=== PATIENT | female | born 1970 | race Two or more races ===

== ENCOUNTER 2018-02-11 22:06 | Emergency (ER) | payer MEDICAID ==
[~2018-02-11] VITALS: Ht 149.9 cm; Wt 67.7 kg
[~2018-02-11 22:06] MED LIST: ALB0.5UD NEB; ASPI-1265 PO; CLON-529 PO; DIAZ5TAB PO; DOCU-148 PO; ESCI5TAB PO; HYDR-3965 PO; METO50TA16 PO; NAPR-1154 PO; NITR0.4T48 SL; OLAN15TA3 PO; OLAN2.5T3 PO; PANT-47 PO; SYN0.088T PO; TOP100T PO
[2018-02-11] MEDS ORDERED: metoclopramide 5 mg/ml inj IM ONE (23:50)
[2018-02-12 00:20] LABS: BASOPHILS # (AUTO) 0.1 X10'3 (0-0.2); BASOPHILS % (AUTO) 0.5 % (0-1); EOSINOPHILS # (AUTO) 0.5 X10'3 (0-0.9); EOSINOPHILS % (AUTO) 4.6 % (0-6); HEMATOCRIT 35.1 % (35.0-45.0); HEMOGLOBIN 11.8 g/dl (12.0-16.0); LYMPHOCYTES # (AUTO) 2.4 X10'3 (1.1-4.8); LYMPHOCYTES % (AUTO) 20.4 % (21-51); MEAN CORPUSCULAR HEMOGLOBIN 27.9 PG (27.0-31.0); MEAN CORPUSCULAR HGB CONC 33.7 % (33.0-36.5); MEAN CORPUSCULAR VOLUME 82.7 FL (78-98); MEAN PLATELET VOLUME 7.2 FL (7.4-10.4); MONOCYTES # (AUTO) 0.7 X10'3 (0-0.9); MONOCYTES % (AUTO) 5.7 % (2-12); NEUTROPHILS % (AUTO) 68.8 % (42-75); PLATELET COUNT 491 X10'3 (140-440); RED BLOOD COUNT 4.24 X10'6 (4.20-5.60); RED CELL DISTRIBUTION WIDTH 15.3 % (11.5-14.5); WHITE BLOOD COUNT 11.7 X10'3 (4.5-11.0)
[2018-02-12 00:31] LABS: ALANINE AMINOTRANSFERASE 120 U/L (12-78); ALBUMIN 3.1 G/DL (3.4-5.0); ALBUMIN/GLOBULIN RATIO 0.6 (1.1-1.5); ALKALINE PHOSPHATASE 195 IU/L (46-116); ANION GAP 12 (8-16); ASPARTATE AMINO TRANSFERASE 86 U/L (10-37); BILIRUBIN,TOTAL 0.2 MG/DL (0.1-1.0); BLOOD UREA NITROGEN 11 MG/DL (7-18); BUN/CREATININE RATIO 12.9 (6.6-38.0); CALCIUM 9.1 MG/DL (8.5-10.1); CHLORIDE 104 MMOL/L (99-107); CREATININE 0.85 MG/DL (0.40-0.90); GLUCOSE 142 MG/DL (70-104); POTASSIUM 3.9 MMOL/L (3.5-5.1); SODIUM 140 MMOL/L (135-145); TOTAL CARBON DIOXIDE 24.3 MMOL/L (24-32); TOTAL PROTEIN 8.3 G/DL (6.4-8.2); eGFR 71 ML/MIN
[2018-02-12 01:06] LABS: CLARITY,URINE CLEAR (Clear); COLOR,URINE YELLOW (Yellow); GLUCOSE, URINE NEGATIVE (Neg); KETONES,URINE NEGATIVE (Neg); LEUKOCYTE ESTERASE ,URINE NEGATIVE (Neg); NITRITES, URINE NEGATIVE (Neg); OCCULT BLOOD,URINE NEGATIVE (Neg); PROTEIN,URINE NEGATIVE (Neg); UROBILINOGEN,URINE 0.2 E.U/dL (0.2-1.0)
[2018-02-12 01:17] LABS: UA COLLECTION TYPE STRAIGHT CATH
[2018-02-12 01:26] VITALS: BP 104/62
[2018-02-12] MEDS ORDERED: proMETHazine 25mg tablet PO ONE (01:40)
== END 2018-02-12 02:10 | disposition home or self-care (01) ==
LOC: ER 22:06
DX: G43.909 Migraine, unspecified, not intractable, without status migrainosus (principal); R56.9 Unspecified convulsions; R74.0 Nonspecific elevation of levels of transaminase and lactic acid dehydrogenase [LDH]; Z88.0 Allergy status to penicillin; Z88.6 Allergy status to analgesic agent; Z88.8 Allergy status to other drugs, medicaments and biological substances; Z79.82 Long term (current) use of aspirin; Z79.899 Other long term (current) drug therapy; I10 Essential (primary) hypertension; K21.9 Gastro-esophageal reflux disease without esophagitis; G89.29 Other chronic pain
CPT/HCPCS: 36415; 71045; 80053; 81003; 85025; 96372; 99285; A6449; J2765; Q0169

== ENCOUNTER 2018-04-22 20:35 | Emergency (ER) | payer MEDICAID ==
[~2018-04-22] VITALS: Ht 149.9 cm; Wt 67.7 kg
[2018-04-22] MEDS ORDERED: LORazepam 1 MG tablet PO ONE ×2 (21:30→23:25)
[2018-04-22 21:53] LABS: BASOPHILS % (AUTO) 0.4 % (0-1); EOSINOPHILS # (AUTO) 1.5 X10'3 (0-0.9); EOSINOPHILS % (AUTO) 12.6 % (0-6); HEMATOCRIT 37.6 % (35.0-45.0); HEMOGLOBIN 12.3 g/dl (12.0-16.0); LYMPHOCYTES % (AUTO) 26.2 % (21-51); MEAN CORPUSCULAR HEMOGLOBIN 27.1 PG (27.0-31.0); MEAN CORPUSCULAR HGB CONC 32.7 % (33.0-36.5); MEAN CORPUSCULAR VOLUME 82.7 FL (78-98); MONOCYTES # (AUTO) 0.7 X10'3 (0-0.9); MONOCYTES % (AUTO) 5.9 % (2-12); NEUTROPHILS # (AUTO) 6.4 X10'3 (1.8-7.7); NEUTROPHILS % (AUTO) 54.9 % (42-75); PLATELET COUNT 507 X10'3 (140-440); RED BLOOD COUNT 4.55 X10'6 (4.20-5.60); WHITE BLOOD COUNT 11.6 X10'3 (4.5-11.0)
[2018-04-22 22:05] LABS: ALANINE AMINOTRANSFERASE 41 U/L (12-78); ALBUMIN 3.1 G/DL (3.4-5.0); ALBUMIN/GLOBULIN RATIO 0.6 (1.1-1.5); ALKALINE PHOSPHATASE 169 IU/L (46-116); ANION GAP 11 (8-16); ASPARTATE AMINO TRANSFERASE 35 U/L (10-37); BILIRUBIN,TOTAL 0.2 MG/DL (0.1-1.0); BLOOD UREA NITROGEN 8 MG/DL (7-18); BUN/CREATININE RATIO 8.2 (6.6-38.0); CALCIUM 9.1 MG/DL (8.5-10.1); CHLORIDE 106 MMOL/L (99-107); CREATININE 0.97 MG/DL (0.40-0.90); GLUCOSE 95 MG/DL (70-104); POTASSIUM 3.8 MMOL/L (3.5-5.1); SODIUM 139 MMOL/L (135-145); TOTAL CARBON DIOXIDE 21.7 MMOL/L (24-32); TOTAL PROTEIN 8.5 G/DL (6.4-8.2); eGFR 61 ML/MIN
[2018-04-22] MEDS ORDERED: ondansetron 4mg rapidly disintigrating tab PO ONE (23:15)
[2018-04-22] MEDS ORDERED: HYDROcodone/acetaminophen 5mg/325mg tablet PO ONE (23:15)
[2018-04-23 00:01] VITALS: BP 145/84
== END 2018-04-23 00:04 | disposition home or self-care (01) ==
LOC: ER 20:36
DX: G40.909 Epilepsy, unspecified, not intractable, without status epilepticus (principal); I10 Essential (primary) hypertension; J45.909 Unspecified asthma, uncomplicated; K21.9 Gastro-esophageal reflux disease without esophagitis; G89.29 Other chronic pain; Z86.14 Personal history of Methicillin resistant Staphylococcus aureus infection; Z88.6 Allergy status to analgesic agent; Z88.2 Allergy status to sulfonamides; Z88.5 Allergy status to narcotic agent; Z88.0 Allergy status to penicillin; Z88.8 Allergy status to other drugs, medicaments and biological substances; Z79.82 Long term (current) use of aspirin; Z79.899 Other long term (current) drug therapy; Z98.890 Other specified postprocedural states
CPT/HCPCS: 36415; 71045; 80053; 85025; 99285

== ENCOUNTER 2018-05-23 22:18 | Emergency (ER) | payer MEDICAID ==
[~2018-05-23] VITALS: Ht 149.9 cm; Wt 149.0 kg
[2018-05-23] MEDS ORDERED: LORazepam 2 mg/ml vial IV ONE (22:30)
[2018-05-23 22:55] LABS: BASOPHILS % (AUTO) 0.3 % (0-1); EOSINOPHILS % (AUTO) 0 % (0-6); HEMATOCRIT 39.2 % (35.0-45.0); LYMPHOCYTES # (AUTO) 2.2 X10'3 (1.1-4.8); MEAN CORPUSCULAR HEMOGLOBIN 27.4 PG (27.0-31.0); MEAN CORPUSCULAR HGB CONC 33.1 % (33.0-36.5); MEAN CORPUSCULAR VOLUME 82.8 FL (78-98); MEAN PLATELET VOLUME 7.2 FL (7.4-10.4); MONOCYTES # (AUTO) 0.1 X10'3 (0-0.9); MONOCYTES % (AUTO) 0.7 % (2-12); NEUTROPHILS # (AUTO) 14.5 X10'3 (1.8-7.7); PLATELET COUNT 613 X10'3 (140-440); RED BLOOD COUNT 4.74 X10'6 (4.20-5.60); RED CELL DISTRIBUTION WIDTH 15.5 % (11.5-14.5); WHITE BLOOD COUNT 16.8 X10'3 (4.5-11.0)
[2018-05-23] MEDS ORDERED: normal saline 1000ML IV soln IVB ONE (22:55)
[2018-05-23] MEDS ORDERED: ondansetron/PF 4mg/2ml inj IV ONE (23:15)
[2018-05-23] MEDS ORDERED: morphine 4 MG/ML inj SYRINge IV ONE (23:15)
[2018-05-23 23:28] LABS: ALANINE AMINOTRANSFERASE 32 U/L (12-78); ALBUMIN 3.2 G/DL (3.4-5.0); ALBUMIN/GLOBULIN RATIO 0.6 (1.1-1.5); ALKALINE PHOSPHATASE 164 IU/L (46-116); ANION GAP 13 (8-16); ASPARTATE AMINO TRANSFERASE 22 U/L (10-37); BILIRUBIN,TOTAL 0.2 MG/DL (0.1-1.0); BLOOD UREA NITROGEN 4 MG/DL (7-18); BUN/CREATININE RATIO 4.1 (6.6-38.0); CALCIUM 9.6 MG/DL (8.5-10.1); CHLORIDE 104 MMOL/L (99-107); CREATININE 0.98 MG/DL (0.40-0.90); GLUCOSE 159 MG/DL (70-104); MAGNESIUM 1.9 MG/DL (1.5-2.4); SODIUM 140 MMOL/L (135-145); TOTAL PROTEIN 8.4 G/DL (6.4-8.2); eGFR 60 ML/MIN
[2018-05-23] MEDS: potassium Cl 20 mEq SR tablet PO ONE (23:55)
[2018-05-24] MEDS: potassium Cl 20 mEq SR tablet PO ONE (00:23)
[2018-05-24] MEDS ORDERED: tizanidine 4mg tablet PO STA (00:27)
[2018-05-24] MEDS ORDERED: potassium Cl 10 mEq/100mL bag IV ONE (00:30)
[2018-05-24] MEDS ORDERED: potass W/LIDOcaine 10mEq/100ml 100 ML IV ONE (00:55)
[2018-05-24] MEDS ORDERED: POTASSIUM CL IV ONE (01:00)
[2018-05-24] MEDS ORDERED: LIDOCAINE 1% IV ONE (01:00)
[2018-05-24] MEDS ORDERED: HYDROcodone/acetaminophen 10/325mg tab PO STA (01:31)
[2018-05-24] MEDS ORDERED: TIZA2CAP PO (01:47)
[2018-05-24 02:05] LABS: CLARITY,URINE CLEAR (Clear); COLOR,URINE YELLOW (Yellow); GLUCOSE, URINE NEGATIVE (Neg); KETONES,URINE NEGATIVE (Neg); LEUKOCYTE ESTERASE ,URINE NEGATIVE (Neg); NITRITES, URINE NEGATIVE (Neg); OCCULT BLOOD,URINE MODERATE (Neg); PROTEIN,URINE NEGATIVE (Neg); UROBILINOGEN,URINE 0.2 E.U/dL (0.2-1.0)
[2018-05-24 02:14] LABS: UA COLLECTION TYPE STRAIGHT CATH
[2018-05-24 02:18] LABS: BACTERIA,URINE NONE SEEN /HPF (Neg); MUCUS STRANDS NONE SEEN /LPF (Neg); RBC,URINE 0-2 /HPF (0-2); SQUAMOUS EPITHELIAL CELL,UR FEW /LPF (FEW); WBC,URINE 0-4 /HPF (0-4)
[2018-05-24 02:59] VITALS: BP 108/54
== END 2018-05-24 03:01 | disposition home or self-care (01) ==
LOC: ER 22:18
DX: M62.838 Other muscle spasm (principal); E87.6 Hypokalemia; M54.2 Cervicalgia; M25.519 Pain in unspecified shoulder; G80.9 Cerebral palsy, unspecified; I10 Essential (primary) hypertension; J45.909 Unspecified asthma, uncomplicated; K21.9 Gastro-esophageal reflux disease without esophagitis; G89.29 Other chronic pain; Z21 Asymptomatic human immunodeficiency virus [HIV] infection status; Z99.3 Dependence on wheelchair; Z98.890 Other specified postprocedural states; Z93.1 Gastrostomy status; Z88.0 Allergy status to penicillin; Z88.5 Allergy status to narcotic agent; Z79.899 Other long term (current) drug therapy
CPT/HCPCS: 36415; 80053; 81001; 83735; 85025; 96365; 96375; 99284; J2060; J2270; J2405; J3480; J3490

== ENCOUNTER 2018-10-14 20:45 | Inpatient (IN) | payer MEDICAID ==
[~2018-10-14] VITALS: Ht 149.9 cm; Wt 75.5 kg
[~2018-10-14 20:45] MED LIST changes: +TIZA2CAP PO
[2018-10-14] MEDS ORDERED: normal saline 1000ML IV soln IVB ONE (21:40)
[2018-10-14] MEDS ORDERED: LORazepam 2 mg/ml vial IV ONE ×2 (21:40→22:20)
[2018-10-14 22:08] LABS: BASOPHILS # (AUTO) 0.1 X10'3 (0-0.2); BASOPHILS % (AUTO) 0.3 % (0-1); EOSINOPHILS # (AUTO) 0.5 X10'3 (0-0.9); EOSINOPHILS % (AUTO) 2.9 % (0-6); HEMATOCRIT 37.5 % (35.0-45.0); HEMOGLOBIN 11.9 g/dl (12.0-16.0); LYMPHOCYTES # (AUTO) 2.6 X10'3 (1.1-4.8); LYMPHOCYTES % (AUTO) 15.9 % (21-51); MEAN CORPUSCULAR HEMOGLOBIN 26.6 PG (27.0-31.0); MEAN CORPUSCULAR HGB CONC 31.9 % (33.0-36.5); MEAN CORPUSCULAR VOLUME 83.3 FL (78-98); MEAN PLATELET VOLUME 7.5 FL (7.4-10.4); MONOCYTES # (AUTO) 0.8 X10'3 (0-0.9); MONOCYTES % (AUTO) 4.8 % (2-12); NEUTROPHILS # (AUTO) 12.6 X10'3 (1.8-7.7); NEUTROPHILS % (AUTO) 76.1 % (42-75); PLATELET COUNT 626 X10'3 (140-440); RED BLOOD COUNT 4.49 X10'6 (4.20-5.60); RED CELL DISTRIBUTION WIDTH 15.6 % (11.5-14.5); WHITE BLOOD COUNT 16.5 X10'3 (4.5-11.0)
[2018-10-14 22:24] LABS: ALANINE AMINOTRANSFERASE 31 U/L (12-78); ALBUMIN 3.3 G/DL (3.4-5.0); ALBUMIN/GLOBULIN RATIO 0.6 (1.1-1.5); ALKALINE PHOSPHATASE 200 IU/L (46-116); ANION GAP 16 (8-16); ASPARTATE AMINO TRANSFERASE 21 U/L (10-37); BILIRUBIN,TOTAL 0.2 MG/DL (0.1-1.0); BLOOD UREA NITROGEN 9 MG/DL (7-18); BUN/CREATININE RATIO 9.7 (6.6-38.0); CALCIUM 9.3 MG/DL (8.5-10.1); CHLORIDE 107 MMOL/L (99-107); CREATININE 0.93 MG/DL (0.40-0.90); GLUCOSE 106 MG/DL (70-104); POTASSIUM 3.6 MMOL/L (3.5-5.1); SODIUM 145 MMOL/L (135-145); TOTAL CARBON DIOXIDE 21.7 MMOL/L (24-32); TOTAL PROTEIN 8.9 G/DL (6.4-8.2); eGFR 64 ML/MIN
[2018-10-14 22:29] LABS: INR 1.1 INR; PARTIAL THROMBOPLASTIN TIME 30 SECONDS (22-32); PROTHROMBIN TIME 10.9 SECONDS (9.0-12.0)
[2018-10-14 22:31] LABS: ETHANOL < 0.010 GM/DL (0.0-0.010)
[2018-10-14] MEDS ORDERED: HYDROcodone/acetaminophen 10/325mg tab PO ONE (22:50)
[2018-10-14 23:03] LABS: URINE AMPHETAMINE SCREEN NEGATIVE (Neg); URINE BARBITUATE SCREEN NEGATIVE (Neg); URINE BENZODIAZEPINES SCREEN NEGATIVE (Neg); URINE CANNABINOID SCREEN NEGATIVE (Neg); URINE COCAINE SCREEN NEGATIVE (Neg); URINE METHADONE SCREEN NEGATIVE (Neg); URINE OPIATE SCREEN POSITIVE (Neg); URINE PHENCYCLIDINE SCREEN NEGATIVE (Neg)
--- NOTE | 2018-10-14 23:26 | NUR ---
patient in bed supine eyes closed covers on rr even un labored no observable s/s of acute stress at this time, non -admin norc-due to patients current observable condition
[2018-10-14 23:53] LABS: CLARITY,URINE CLEAR (Clear); COLOR,URINE YELLOW (Yellow); GLUCOSE, URINE NEGATIVE (Neg); KETONES,URINE NEGATIVE (Neg); LEUKOCYTE ESTERASE ,URINE NEGATIVE (Neg); NITRITES, URINE NEGATIVE (Neg); OCCULT BLOOD,URINE NEGATIVE (Neg); PH,URINE 6.5 (4.8-8.0); PROTEIN,URINE NEGATIVE (Neg)
[2018-10-14 23:58] LABS: UA COLLECTION TYPE FOLEY CATH
[2018-10-15] MEDS ORDERED: CefTRIAXone 2gm/D5W 50ml 50 ML IV ONE (00:45)
[2018-10-15] MEDS ORDERED: acetaminophen 650mg rectal suppository RC PRN (02:20)
[2018-10-15] MEDS ORDERED: mag hydrox/Alum hydrox/simeth 30ml oral suspension PO PRN (02:20)
[2018-10-15] MEDS ORDERED: acetaminophen 325mg tablet PO PRN ×2 (02:20)
[2018-10-15] MEDS ORDERED: magnesium hydroxide 30ml (MOM) UD suspension PO PRN (02:20)
[2018-10-15] MEDS ORDERED: morphine 4 MG/ML inj SYRINge IV PRN (02:20)
[2018-10-15] MEDS ORDERED: ondansetron/PF 4mg/2ml inj IV PRN (02:20)
[2018-10-15] MEDS ORDERED: HYDROmorphone 1 mg/ml syringe IV PRN (02:20)
[2018-10-15] MEDS ORDERED: metoclopramide 5 mg/ml inj IV PRN (02:20)
--- NOTE | 2018-10-15 02:58 | NUR ---
Patient in room ED 16. I have received report from Easton MANNING and had the opportunity to ask questions and assume patient care. Waiting pt arrival to PCU
[2018-10-15 03:15] VITALS: BP 121/86
--- NOTE | 2018-10-15 03:15 | NUR ---
Pt now in 3023B. Pt sedated r/t ativan in ED. Alert to voice. Cerebral palsy with contracted extremities. Per report, pt stated she has degenerative joints in her shoulders, leaving her with very limited ROM. IV access in R. elliott. Pt refused any in arms. She is a hard stick. Samm per protocol. VSS T 98.8 BP 121/86 hr 90 o2 sat 94 on RA RR 16
[2018-10-15 03:50] LABS: MAGNESIUM 1.3 MG/DL (1.5-2.4); PHOSPHORUS 2.6 MG/DL (2.3-4.5)
[2018-10-15] MEDS ORDERED: magnesium Cl slow-release 64mg tablet PO PRN (04:10)
[2018-10-15] MEDS ORDERED: magnesium 4gm in 100ml NS 100 ML IV PRN (04:10)
[2018-10-15] MEDS ORDERED: potassium Cl 40MEQ/NS 500ml 500 ML IV PRN ×2 (04:10)
[2018-10-15] MEDS ORDERED: potassium Cl 20 mEq SR tablet PO PRN ×2 (04:10)
[2018-10-15] MEDS ORDERED: albuterol 2.5 MG/3 ML nebule NEB PRN ×2 (05:30→22:10)
[2018-10-15 06:00] VITALS: BP 121/83
[2018-10-15] MEDS: normal saline 1000ml 1,000 ML IV SCH ×3 (07:08→22:17)
--- NOTE | 2018-10-15 07:15 | NUR ---
Problems reprioritized. Patient report given, questions answered & plan of care reviewed with Pat rn.
--- NOTE | 2018-10-15 07:41 | NUR ---
Patient in room PCU 3023. I have received report from Faustina RN and had the opportunity to ask questions and assume patient care.
[2018-10-15] MEDS ORDERED: methylPREDNISolone sod succ 125mg/2ml vial IV SCH (08:00)
[2018-10-15] MEDS: heparin, porcine 5000 units/ml vial SQ SCH ×2 (08:15→20:57)
[2018-10-15] MEDS: docusate sod 100mg capsule PO SCH ×2 (08:15→20:00)
[2018-10-15] MEDS: azithromycin 250mg tablet PO SCH (08:15)
[2018-10-15] MEDS: CefTRIAXone/D5W-Rocephin 1gm 50 ML IV SCH (08:16)
[2018-10-15] MEDS: HYDROcodone/acetaminophen 5mg/325mg tablet PO PRN ×4 (08:25→22:59)
[2018-10-15] MEDS ORDERED: magnesium 2GM in 50ml NS 50 ML IV ONE (09:45)
[2018-10-15 11:00] VITALS: BP 129/80
--- NOTE | 2018-10-15 14:00 | NUR ---
Caregiver at bedside. Caregiver has sent a text to patient's family to see if anyone can bring in patient's electric wheelchair.
[2018-10-15] MEDS: ipratropium/albuterol 3ml nebule NEB SCH ×2 (14:30→21:45)
[2018-10-15 15:00] VITALS: BP 122/80
--- NOTE | 2018-10-15 15:49 | NUR ---
Extended PIV and 3 PIVs attempted but unsuccessful. Keysha MANNING aware and to call Flushed PIV to right elliott with slight sting initially but no redness or swelling noted. Addendum: 10/15/18 at 1551 by Pearl Ferrara RN Amended: Links added.
--- NOTE | 2018-10-15 17:44 | NUR ---
Paged Dr. Hager PAGER ID: [phone] MESSAGE: Machelle Mendez... in 3023B with cerebral palsy states that her spasms are especially bad from 6 pm to 9 pm and that she usually takes Zaniflex for this. Also states that she often uses BiPaP with 25% oxygen to sleep at night. Roberto Gomes [phone]
--- NOTE | 2018-10-15 18:30 | NUR ---
Patient in room PCU 3023. I have received report from Roberto MANNING and had the opportunity to ask questions and assume patient care.
--- NOTE | 2018-10-15 19:26 | NUR ---
Problems reprioritized. Patient report given, questions answered & plan of care reviewed with Ghazala MANNING.
[2018-10-15] MEDS ORDERED: lactobacillus rhamnosus 10,000 MMU CELLS/CAPSULE PO SCH (20:00)
[2018-10-15] MEDS ORDERED: METO-467 PO (20:24)
[2018-10-15] MEDS ORDERED: TIZA4TAB11 PO ×3 (20:24)
[2018-10-15] MEDS ORDERED: ALBU6.7H INH (20:24)
[2018-10-15] MEDS ORDERED: LACT1CAP65 PO (20:26)
[2018-10-15] MEDS ORDERED: MULT-933 PO (20:26)
[2018-10-15] MEDS ORDERED: TEN1T PO (20:28)
[2018-10-15] MEDS ORDERED: temazepam 15mg capsule PO PRN (21:00)
[2018-10-15] MEDS ORDERED: tizanidine 4mg tablet PO PRN (21:00)
[2018-10-15] MEDS ORDERED: tizanidine 4mg tablet PO SCH (21:00)
[2018-10-15] MEDS ORDERED: docusate sod 100mg capsule PO PRN (22:10)
[2018-10-15] MEDS ORDERED: topiramate 100mg tablet PO ONE (23:40)
[2018-10-15] MEDS ORDERED: tizanidine 4mg tablet PO ONE (23:45)
[2018-10-15] MEDS ORDERED: olanzapine 10mg tablet PO ONE (23:45)
[2018-10-15] MEDS ORDERED: OLANZapine 2.5MG tablet PO ONE (23:45)
--- NOTE | 2018-10-16 06:21 | NUR ---
Patient in room PCU 3021. I have received report from Layla MANNING and had the opportunity to ask questions and assume patient care. Will continue to monitor patient.
[2018-10-16 06:38] LABS: BASOPHILS # (AUTO) 0.1 X10'3 (0-0.2); BASOPHILS % (AUTO) 0.6 % (0-1); EOSINOPHILS # (AUTO) 0.2 X10'3 (0-0.9); EOSINOPHILS % (AUTO) 1.5 % (0-6); HEMATOCRIT 32.4 % (35.0-45.0); HEMOGLOBIN 10.3 g/dl (12.0-16.0); LYMPHOCYTES # (AUTO) 4.3 X10'3 (1.1-4.8); LYMPHOCYTES % (AUTO) 39.8 % (21-51); MEAN CORPUSCULAR HEMOGLOBIN 26.3 PG (27.0-31.0); MEAN CORPUSCULAR HGB CONC 31.8 % (33.0-36.5); MEAN CORPUSCULAR VOLUME 82.9 FL (78-98); MEAN PLATELET VOLUME 7.4 FL (7.4-10.4); MONOCYTES # (AUTO) 0.5 X10'3 (0-0.9); MONOCYTES % (AUTO) 4.2 % (2-12); NEUTROPHILS # (AUTO) 5.9 X10'3 (1.8-7.7); NEUTROPHILS % (AUTO) 53.9 % (42-75); PLATELET COUNT 443 X10'3 (140-440); RED BLOOD COUNT 3.91 X10'6 (4.20-5.60); RED CELL DISTRIBUTION WIDTH 15.7 % (11.5-14.5); WHITE BLOOD COUNT 10.9 X10'3 (4.5-11.0)
--- NOTE | 2018-10-16 06:38 | NUR ---
Problems reprioritized. Patient report given, questions answered & plan of care reviewed with Shiraz MANNING.
[2018-10-16 07:00] VITALS: BP 146/83
[2018-10-16] MEDS: ipratropium/albuterol 3ml nebule NEB SCH ×3 (07:03→15:14)
[2018-10-16 07:12] LABS: ALBUMIN 2.6 G/DL (3.4-5.0); BLOOD UREA NITROGEN 8 MG/DL (7-18); BUN/CREATININE RATIO 9.6 (6.6-38.0); CALCIUM 8.2 MG/DL (8.5-10.1); CHLORIDE 112 MMOL/L (99-107); CREATININE 0.83 MG/DL (0.40-0.90); GLUCOSE 101 MG/DL (70-104); POTASSIUM 3.6 MMOL/L (3.5-5.1); TOTAL CARBON DIOXIDE 21.4 MMOL/L (24-32); eGFR 73 ML/MIN
[2018-10-16 07:24] LABS: ANION GAP 12 (8-16); SODIUM 145 MMOL/L (135-145)
[2018-10-16] MEDS: azithromycin 250mg tablet PO SCH (07:28)
[2018-10-16] MEDS: CefTRIAXone/D5W-Rocephin 1gm 50 ML IV SCH (07:28)
[2018-10-16] MEDS: docusate sod 100mg capsule PO SCH (07:28)
[2018-10-16] MEDS: levoTHYROXINE 25mcg tablet PO SCH ×2 (07:29→08:00)
[2018-10-16] MEDS: heparin, porcine 5000 units/ml vial SQ SCH (07:36)
[2018-10-16] MEDS ORDERED: guanFACINE 1 mg tablet PO SCH (08:00)
[2018-10-16] MEDS ORDERED: tizanidine 4mg tablet PO SCH ×5 (08:00→21:00)
[2018-10-16] MEDS ORDERED: ESCITALOPRAM OXALATE 20 MG PO SCH (08:00)
[2018-10-16] MEDS ORDERED: topiramate 100mg tablet PO SCH (08:00)
[2018-10-16] MEDS ORDERED: predniSONE 20 mg tablet PO SCH (08:00)
[2018-10-16] MEDS ORDERED: lactobacillus rhamnosus 10,000 MMU CELLS/CAPSULE PO SCH (08:00)
[2018-10-16] MEDS: normal saline 1000ml 1,000 ML IV SCH (08:17)
[2018-10-16 11:00] VITALS: BP 130/80
[2018-10-16] MEDS: HYDROcodone/acetaminophen 5mg/325mg tablet PO PRN ×2 (13:26→17:28)
--- NOTE | 2018-10-16 14:57 | NUR ---
Page to respiratory: [id number] pt requesting PRN breathing tx. Said she did not receive one this morning because she was asleep. Thank you.
[2018-10-16 15:00] VITALS: BP 113/68
--- NOTE | 2018-10-16 16:47 | NUR ---
Page sent to Dr. Hager: PAGER ID: [phone] MESSAGE: [id number] Dennis: Patient is wondering if she is going home today. Thanks, Mendy [phone]
[2018-10-16] MEDS ORDERED: BUDE10.22 INH (17:29)
[2018-10-16] MEDS ORDERED: PRED10TA23 PO (17:29)
[2018-10-16] MEDS ORDERED: AZIT-63 PO (17:29)
[2018-10-16] MEDS ORDERED: CEFD300C3 PO (17:29)
--- NOTE | 2018-10-16 18:24 | NUR ---
Problems reprioritized. Patient report given, questions answered & plan of care reviewed with Oliva Baptiste RN. Patient stable at transfer of care.
--- NOTE | 2018-10-16 18:30 | NUR ---
Patient in room PCU 3023. I have received report from KASIA MANNING and had the opportunity to ask questions and assume patient care. PATIENT GETTING READY FOR DISCHARGE HOME ANISH
[2018-10-16 19:00] VITALS: BP 118/68
--- NOTE | 2018-10-16 19:00 | NUR ---
PATIENT'S PIV DISCONTINUED WITH CANNULA INTACT PRESSURE DRESSING APPLIED NO BLEEDING NOTED. PROTOCOL BOLDEN DISCONTINUED WITH NO ILL EFFECTS.
--- NOTE | 2018-10-16 19:30 | NUR ---
DISCHARGE INSTRUCTIONS GIVEN TO PATIENT AND CAREGIVER, BOTH VERBALIZED UNDERSTANDING. DISCHARGE PAPER SIGNED BY CAREGIVER WITH THE CONSENT OF PATIENT.
--- NOTE | 2018-10-16 19:55 | NUR ---
PATIENT LEFT FOR DISCHARGE HOME WITH CAREGIVER IN A WHEELCHAIR WITH STAFF TO THE FRONT DOOR.
[2018-10-16] MEDS ORDERED: olanzapine 10mg tablet PO SCH (21:00)
[2018-10-16] MEDS ORDERED: OLANZapine 2.5MG tablet PO SCH (21:00)
[2018-10-17] MEDS ORDERED: tizanidine 4mg tablet PO SCH ×2 (08:00→13:00)
== END 2018-10-16 19:55 | disposition home health service (06) | DRG 720 ==
LOC: ER 20:47 → ED HOLD 10-15 02:17 → PCU 3S 10-15 03:20
PROVIDERS: ADMIT Family Medicine; ATTEND Hospitalist
PROC: 5A09357 Assistance with Respiratory Ventilation, Less than 24 Consecutive Hours, Continuous Positive Airway Pressure (ICD-10-PCS; principal; 2018-10-15)
DX: A41.9 Sepsis, unspecified organism (principal); E83.42 Hypomagnesemia; E86.1 Hypovolemia; G80.9 Cerebral palsy, unspecified; I10 Essential (primary) hypertension; J44.1 Chronic obstructive pulmonary disease with (acute) exacerbation; K21.9 Gastro-esophageal reflux disease without esophagitis; F32.9 Major depressive disorder, single episode, unspecified; F41.9 Anxiety disorder, unspecified; G89.29 Other chronic pain; Z99.3 Dependence on wheelchair; Z88.0 Allergy status to penicillin; Z88.8 Allergy status to other drugs, medicaments and biological substances; Z82.49 Family history of ischemic heart disease and other diseases of the circulatory system; Z79.899 Other long term (current) drug therapy
CPT/HCPCS: 36415; 71045; 80048; 80053; 80305; 80320; 81003; 83735; 83880; 84100; 84443; 84484; 85025; 85610; 85730; 87070; 93005; 94640; 94660; 94760; 96361; 96365; 96375; 97161; 97530; 99285; G0378; J0696; J1644; J2060; J2270; J2405; J2930; J3475; J3490; J7030; J7512

== ENCOUNTER 2019-02-14 09:09 | Emergency (ER) | payer MEDICAID ==
[~2019-02-14] VITALS: Ht 149.9 cm; Wt 72.7 kg
[~2019-02-14 09:09] MED LIST changes: -ALB0.5UD NEB; +ALBU6.7H INH; -ASPI-1265 PO; +BUDE10.22 INH; -CLON-529 PO; -DIAZ5TAB PO; +LACT1CAP65 PO; +METO-467 PO; -METO50TA16 PO; +MULT-933 PO; -NAPR-1154 PO; -OLAN2.5T3 PO; -PANT-47 PO; +TEN1T PO; -TIZA2CAP PO; +TIZA4TAB11 PO
[2019-02-14 09:18] VITALS: BP 132/89
--- NOTE | 2019-02-14 09:25 | NUR ---
BIB CAREGIVER, IN ELECTRIC WHEELCHAIR, WITH C/O PAIN AND SWELLING IN RIGHT ANKLE SINCE FRIDAY. DENIES ANY FALLS OR TRAUMA TO ANKLE. REDNESS NOTED TO TOP OF RIGHT FOOT. LATERAL ANKLE SWELLING 2+ NOTED.
[2019-02-14] MEDS ORDERED: CLOT15CR10 TP (10:32)
== END 2019-02-14 11:35 | disposition home or self-care (01) ==
LOC: ER 09:10
DX: M25.571 Pain in right ankle and joints of right foot (principal); M25.519 Pain in unspecified shoulder; B35.3 Tinea pedis; I10 Essential (primary) hypertension; K21.9 Gastro-esophageal reflux disease without esophagitis; G89.29 Other chronic pain; Z86.14 Personal history of Methicillin resistant Staphylococcus aureus infection; Z98.890 Other specified postprocedural states; Z88.1 Allergy status to other antibiotic agents; Z88.0 Allergy status to penicillin; Z88.8 Allergy status to other drugs, medicaments and biological substances; Z79.899 Other long term (current) drug therapy
CPT/HCPCS: 73610; 99284

== ENCOUNTER 2019-02-24 20:48 | Emergency (ER) | payer MEDICAID ==
[~2019-02-24] VITALS: Ht 149.9 cm; Wt 75.0 kg
[~2019-02-24 20:48] MED LIST changes: +CLOT15CR10 TP
[2019-02-24 20:57] VITALS: BP 144/100
[2019-02-24] MEDS ORDERED: topiramate 25mg tablet PO ONE (22:00)
[2019-02-24] MEDS ORDERED: topiramate 100mg tablet PO ONE ×3 (22:00→22:20)
== END 2019-02-24 22:33 | disposition home or self-care (01) ==
LOC: ER 20:49
DX: G40.909 Epilepsy, unspecified, not intractable, without status epilepticus (principal); I10 Essential (primary) hypertension; J45.909 Unspecified asthma, uncomplicated; K21.9 Gastro-esophageal reflux disease without esophagitis; G89.29 Other chronic pain; Z76.0 Encounter for issue of repeat prescription; Z86.14 Personal history of Methicillin resistant Staphylococcus aureus infection; Z98.890 Other specified postprocedural states; Z88.0 Allergy status to penicillin; Z88.8 Allergy status to other drugs, medicaments and biological substances; Z79.899 Other long term (current) drug therapy
CPT/HCPCS: 99281

== ENCOUNTER 2019-03-06 20:31 | Emergency (ER) | payer MEDICAID ==
[~2019-03-06] VITALS: Ht 177.8 cm; Wt 72.0 kg
[2019-03-06] MEDS ORDERED: morphine 4 MG/ML inj SYRINge IM ONE (21:35)
[2019-03-06] MEDS ORDERED: ondansetron 4mg rapidly disintigrating tab PO ONE (21:35)
[2019-03-06 21:39] VITALS: BP 93/61
== END 2019-03-06 21:51 | disposition home or self-care (01) ==
LOC: ER 20:32
DX: G89.29 Other chronic pain (principal); M25.512 Pain in left shoulder; M25.511 Pain in right shoulder; I10 Essential (primary) hypertension; J45.909 Unspecified asthma, uncomplicated; K21.9 Gastro-esophageal reflux disease without esophagitis; Z86.14 Personal history of Methicillin resistant Staphylococcus aureus infection; Z98.890 Other specified postprocedural states; Z88.0 Allergy status to penicillin; Z88.5 Allergy status to narcotic agent; Z88.8 Allergy status to other drugs, medicaments and biological substances; Z79.899 Other long term (current) drug therapy
CPT/HCPCS: 96372; 99284; J2270

== ENCOUNTER 2019-03-29 19:11 | Emergency (ER) | payer MEDICAID ==
[~2019-03-29] VITALS: Ht 149.9 cm; Wt 75.0 kg
[~2019-03-29 19:11] MED LIST changes: +ALBU18HF2 INH; +PRED50TA PO; +TIZA4CAP PO
[2019-03-29 20:40] LABS: BASOPHILS # (AUTO) 0.1 X10'3 (0-0.2); BASOPHILS % (AUTO) 0.5 % (0-1); EOSINOPHILS # (AUTO) 0.2 X10'3 (0-0.9); HEMOGLOBIN 12.3 g/dl (12.0-16.0); LYMPHOCYTES # (AUTO) 4.6 X10'3 (1.1-4.8); LYMPHOCYTES % (AUTO) 30.6 % (21-51); MEAN CORPUSCULAR HEMOGLOBIN 28.5 PG (27.0-31.0); MEAN CORPUSCULAR HGB CONC 33.4 g/dL (33.0-36.5); MEAN CORPUSCULAR VOLUME 85.3 FL (78-98); MONOCYTES % (AUTO) 6.6 % (2-12); NEUTROPHILS # (AUTO) 9.2 X10'3 (1.8-7.7); NEUTROPHILS % (AUTO) 61.3 % (42-75); PLATELET COUNT 402 X10'3 (140-440); RED BLOOD COUNT 4.34 X10'6 (4.20-5.60); RED CELL DISTRIBUTION WIDTH 16.9 % (11.5-14.5); WHITE BLOOD COUNT 15.1 X10'3 (4.5-11.0)
[2019-03-29 20:53] LABS: ALANINE AMINOTRANSFERASE 49 U/L (12-78); ALBUMIN/GLOBULIN RATIO 0.6 (1.1-1.5); ALKALINE PHOSPHATASE 128 IU/L (46-116); ANION GAP 7 (8-16); ASPARTATE AMINO TRANSFERASE 17 U/L (10-37); BILIRUBIN,TOTAL 0.2 MG/DL (0.1-1.0); BLOOD UREA NITROGEN 13 MG/DL (7-18); BUN/CREATININE RATIO 13.5 (6.6-38.0); CALCIUM 8.9 MG/DL (8.5-10.1); CHLORIDE 107 MMOL/L (99-107); CREATININE 0.96 MG/DL (0.40-0.90); GLUCOSE 97 MG/DL (70-104); PARTIAL THROMBOPLASTIN TIME 26 SECONDS (22-32); POTASSIUM 3.3 MMOL/L (3.5-5.1); SODIUM 140 MMOL/L (135-145); TOTAL CARBON DIOXIDE 25.9 MMOL/L (24-32); TOTAL PROTEIN 7.7 G/DL (6.4-8.2); eGFR 62 ML/MIN
[2019-03-29 21:47] LABS: TOTAL CELLS COUNTED 100
[2019-03-29 21:48] LABS: ANISOCYTOSIS 1+; PLATELET ESTIMATE NORMAL
[2019-03-29 21:49] LABS: TOXIC VACUOLATION 1+
[2019-03-30] MEDS ORDERED: clindamycin 150mg capsule PO ONE (00:50)
[2019-03-30] MEDS ORDERED: CLIN300C70 PO (00:59)
[2019-03-30 01:19] VITALS: BP 108/72
== END 2019-03-30 01:23 | disposition home or self-care (01) ==
LOC: ER 19:13
DX: J69.0 Pneumonitis due to inhalation of food and vomit (principal); I10 Essential (primary) hypertension; J45.909 Unspecified asthma, uncomplicated; K21.9 Gastro-esophageal reflux disease without esophagitis; G89.29 Other chronic pain; Z98.890 Other specified postprocedural states; Z86.14 Personal history of Methicillin resistant Staphylococcus aureus infection; Z88.6 Allergy status to analgesic agent; Z88.8 Allergy status to other drugs, medicaments and biological substances; Z88.0 Allergy status to penicillin; Z88.5 Allergy status to narcotic agent
CPT/HCPCS: 36415; 71045; 80053; 84484; 85025; 85610; 85730; 93005; 99284

== ENCOUNTER 2019-03-31 14:38 | Outpatient (CLI) | payer MEDICAID ==
[~2019-03-31 14:38] MED LIST changes: +CLIN300C70 PO
== END 2019-03-31 23:59 | disposition home or self-care (01) ==
LOC: RAD 14:38
PROVIDERS: ATTEND Family Medicine
DX: R13.12 Dysphagia, oropharyngeal phase (principal); E03.9 Hypothyroidism, unspecified; G80.9 Cerebral palsy, unspecified; K21.9 Gastro-esophageal reflux disease without esophagitis; I10 Essential (primary) hypertension; J45.909 Unspecified asthma, uncomplicated
CPT/HCPCS: 74230

== ENCOUNTER 2019-05-16 10:54 | Emergency (ER) | payer MEDICAID ==
[~2019-05-16] VITALS: Ht 149.9 cm; Wt 72.7 kg
[~2019-05-16 10:54] MED LIST changes: -ALBU6.7H INH; +ALBU6.7H9 INH; -CLIN300C70 PO
--- NOTE | 2019-05-16 11:12 | NUR ---
PT IS WHEELCHAIR BOUND, PT REQUEST TO STAY IN HER WHEELCHAIR AT THIS TIME.
[2019-05-16 11:57] LABS: BASOPHILS % (AUTO) 0.3 % (0-1); EOSINOPHILS % (AUTO) 0.3 % (0-6); HEMOGLOBIN 13.1 g/dl (12.0-16.0); LYMPHOCYTES # (AUTO) 1.7 X10'3 (1.1-4.8); LYMPHOCYTES % (AUTO) 11.8 % (21-51); MEAN CORPUSCULAR HEMOGLOBIN 28.2 PG (27.0-31.0); MEAN CORPUSCULAR HGB CONC 31.9 g/dL (33.0-36.5); MEAN CORPUSCULAR VOLUME 88.4 FL (78-98); MEAN PLATELET VOLUME 7.3 FL (7.4-10.4); MONOCYTES # (AUTO) 0.4 X10'3 (0-0.9); MONOCYTES % (AUTO) 2.5 % (2-12); NEUTROPHILS % (AUTO) 85.1 % (42-75); PLATELET COUNT 377 X10'3 (140-440); RED BLOOD COUNT 4.64 X10'6 (4.20-5.60); WHITE BLOOD COUNT 14.1 X10'3 (4.5-11.0)
[2019-05-16 12:09] LABS: ALANINE AMINOTRANSFERASE 53 U/L (12-78); ALBUMIN 3.1 G/DL (3.4-5.0); ALBUMIN/GLOBULIN RATIO 0.6 (1.1-1.5); ALKALINE PHOSPHATASE 138 IU/L (46-116); ANION GAP 11 (8-16); ASPARTATE AMINO TRANSFERASE 28 U/L (10-37); BILIRUBIN,TOTAL 0.2 MG/DL (0.1-1.0); BLOOD UREA NITROGEN 14 MG/DL (7-18); CALCIUM 9.6 MG/DL (8.5-10.1); CHLORIDE 108 MMOL/L (99-107); GLUCOSE 165 MG/DL (70-104); POTASSIUM 4.7 MMOL/L (3.5-5.1); SODIUM 143 MMOL/L (135-145); eGFR 59 ML/MIN
[2019-05-16 12:14] LABS: PARTIAL THROMBOPLASTIN TIME 26 SECONDS (22-32)
[2019-05-16 12:39] VITALS: BP 134/82
== END 2019-05-16 12:41 | disposition home or self-care (01) ==
LOC: ER 10:54
DX: J06.9 Acute upper respiratory infection, unspecified (principal); I10 Essential (primary) hypertension; J45.909 Unspecified asthma, uncomplicated; K21.9 Gastro-esophageal reflux disease without esophagitis; G89.29 Other chronic pain; Z86.14 Personal history of Methicillin resistant Staphylococcus aureus infection; F41.9 Anxiety disorder, unspecified; F32.9 Major depressive disorder, single episode, unspecified; Z98.890 Other specified postprocedural states; Z88.6 Allergy status to analgesic agent; Z88.0 Allergy status to penicillin; Z88.2 Allergy status to sulfonamides; Z88.8 Allergy status to other drugs, medicaments and biological substances; Z79.899 Other long term (current) drug therapy
CPT/HCPCS: 36415; 71045; 80053; 83735; 83880; 84484; 85025; 85610; 85730; 93005; 99284

== ENCOUNTER 2019-05-20 17:13 | Inpatient (IN) | payer MEDICAID ==
[~2019-05-20] VITALS: Ht 149.9 cm; Wt 80.0 kg
[2019-05-20] MEDS ORDERED: normal saline 1000ML IV soln IVB ONE (18:15)
[2019-05-20] MEDS ORDERED: LORazepam 2 mg/ml vial IV ONE (18:15)
[2019-05-20 18:33] LABS: BASOPHILS % (AUTO) 0.3 % (0-1); EOSINOPHILS # (AUTO) 0.2 X10'3 (0-0.9); EOSINOPHILS % (AUTO) 1.1 % (0-6); HEMATOCRIT 41.5 % (35.0-45.0); LYMPHOCYTES # (AUTO) 5.3 X10'3 (1.1-4.8); LYMPHOCYTES % (AUTO) 30.6 % (21-51); MEAN CORPUSCULAR HEMOGLOBIN 27.9 PG (27.0-31.0); MEAN CORPUSCULAR HGB CONC 31.3 g/dL (33.0-36.5); MEAN CORPUSCULAR VOLUME 89.1 FL (78-98); MEAN PLATELET VOLUME 7.2 FL (7.4-10.4); MONOCYTES # (AUTO) 1.1 X10'3 (0-0.9); MONOCYTES % (AUTO) 6.1 % (2-12); NEUTROPHILS # (AUTO) 10.7 X10'3 (1.8-7.7); NEUTROPHILS % (AUTO) 61.9 % (42-75); PLATELET COUNT 458 X10'3 (140-440); RED BLOOD COUNT 4.65 X10'6 (4.20-5.60); RED CELL DISTRIBUTION WIDTH 16.6 % (11.5-14.5); WHITE BLOOD COUNT 17.3 X10'3 (4.5-11.0)
[2019-05-20 18:41] LABS: ALANINE AMINOTRANSFERASE 53 U/L (12-78); ALBUMIN 3.3 G/DL (3.4-5.0); ALBUMIN/GLOBULIN RATIO 0.7 (1.1-1.5); ALKALINE PHOSPHATASE 134 IU/L (46-116); ANION GAP 10 (8-16); ASPARTATE AMINO TRANSFERASE 25 U/L (10-37); BILIRUBIN,TOTAL 0.2 MG/DL (0.1-1.0); BLOOD UREA NITROGEN 16 MG/DL (7-18); BUN/CREATININE RATIO 15.7 (6.6-38.0); CALCIUM 9.4 MG/DL (8.5-10.1); CHLORIDE 108 MMOL/L (99-107); CREATININE 1.02 MG/DL (0.40-0.90); GLUCOSE 85 MG/DL (70-104); POTASSIUM 3.5 MMOL/L (3.5-5.1); SODIUM 144 MMOL/L (135-145); TOTAL CARBON DIOXIDE 25.9 MMOL/L (24-32); TOTAL PROTEIN 8.3 G/DL (6.4-8.2); eGFR 57 ML/MIN
[2019-05-20 18:44] LABS: PARTIAL THROMBOPLASTIN TIME 25 SECONDS (22-32)
[2019-05-20 18:57] LABS: D-DIMER 0.96 MG/L FEU (0-0.50)
[2019-05-20] MEDS ORDERED: morphine 4 MG/ML inj SYRINge IM ONE (19:00)
[2019-05-20] MEDS ORDERED: ondansetron/PF 4mg/2ml inj IV ONE (19:00)
[2019-05-20] MEDS ORDERED: iohexol 350MG/ML 100ml bottle IV ONE (19:05)
--- NOTE | 2019-05-20 19:08 | NUR ---
VERBAL RECEIVED FROM DR. LINTON FOR ZOFRAN AND MORPHINE
--- NOTE | 2019-05-20 19:37 | NUR ---
MD UPDATED THAT PT IS VERY DIFFICULT IV PLACEMENT AND CURRENTLY HAVE A 20 G IN HER LEFT LOWER LEG. HOT DIPPER WORKING ON 2ND IV NOW.
--- NOTE | 2019-05-20 20:33 | NUR ---
I was talking with Pt and Caregiver about getting her more pain meds when she started tremorning and shaking and eyes closed and Caregiver reproted she is having a seizure and that she has them infrequently.
--- NOTE | 2019-05-20 20:45 | NUR ---
SHAKING LASTED APROX 2 MIN AND O2 SATS DROPPED TO 88% AND RR UP TO 26 AND HR TO 130. PT ABLE TO OPEN HER EYES AND SHAKE HER HEAD YES AND NO DURING SEIZURE AND WAS ALERT AND ORIENTED AND NOT POSTICTAL AFTERWARDS. DR. LINTON UPDATED AND VERBAL RECEIVED FOR MSIV 4 MG PT REPORTED WHE SHE IS SICK OR IN PAIN IT CAN CAUSE HER TO HAVE SEIZURE IN PAST.
[2019-05-20] MEDS ORDERED: morphine 4 MG/ML inj SYRINge IV ONE (20:50)
[2019-05-20] MEDS ORDERED: levoFLOXACIN-Levaquin 750MG/D5 150 ML IV STA (20:50)
[2019-05-20] MEDS ORDERED: SIMV20TA5 PO (21:15)
[2019-05-20] MEDS ORDERED: TIZA2TAB5 PO (21:15)
[2019-05-20] MEDS ORDERED: OLAN5TAB3 PO (21:15)
[2019-05-20] MEDS ORDERED: OLAN15TA3 PO ×2 (21:15→21:18)
[2019-05-20] MEDS ORDERED: PRED5TAB PO (21:15)
[2019-05-20] MEDS ORDERED: acetaminophen 325mg tablet PO PRN (21:20)
[2019-05-20] MEDS ORDERED: magnesium hydroxide 30ml (MOM) UD suspension PO PRN (21:20)
[2019-05-20] MEDS ORDERED: mag hydrox/Alum hydrox/simeth 30ml oral suspension PO PRN (21:20)
[2019-05-20] MEDS ORDERED: morphine 2 MG/ML inj. syringe IV PRN (21:20)
[2019-05-20] MEDS ORDERED: ondansetron/PF 4mg/2ml inj IV PRN (21:20)
[2019-05-20] MEDS ORDERED: HYDROcodone/acetaminophen 5mg/325mg tablet PO PRN (21:25)
[2019-05-20] MEDS ORDERED: docusate sod 100mg capsule PO PRN (21:25)
--- NOTE | 2019-05-20 21:42 | NUR ---
TELEPHONED VIANEY AND INFORMED HIM OF LA. HE ASKED WHAT FLUIDS THE PATIENT RECEIVED IN THE ER. I REVIEWED THE MAR AND INFORMED HIM SHE RECEIVED ONE LITER OF NS. HE ASKED IF HE HAD ANY FLUID ORDERS PLACED. I INFORMED HIM HE DID NOT. HE THEN ASKED FOR ME TO ORDER NS 100MLS/HR AND TO REPEAT THE LACTIC ACID AT SOME POINT. ORDERS PLACED FOR THE NS AND FOR A REPEAT LA AT 0100. NGA PRIMARY RN INFORMED.
[2019-05-20] MEDS: normal saline 1000ml 1,000 ML IV SCH (21:49)
--- NOTE | 2019-05-20 21:52 | NUR ---
IPA 358B, REPORT GIVEN TO BENEDICT. WHILE CALLING REPORT LAB CALLED WITH CRITICAL LAB RESULT LACTIC 4.0. (THE LAB WAS DRAWN AT 1813, BUT ONLY JUST ORDERED BY ). PT IS NOW OVERDUE FOR THE 2 HR LACTIC.
[2019-05-20] MEDS ORDERED: albuterol 2.5 MG/3 ML nebule NEB PRN (21:55)
[2019-05-20] MEDS ORDERED: tizanidine 4mg tablet PO PRN (21:55)
[2019-05-20 22:20] VITALS: BP 131/75
--- NOTE | 2019-05-20 22:20 | NUR ---
PATIENT ADMITTED TO ROOM 358B FROM ER FOR RIGHT UPPER LOBE PNEUMONIA. PLACED COMFORTABLE IN BED. VITAL SIGNS TAKEN AND RECORDED.
[2019-05-21] MEDS ORDERED: LORazepam 2 mg/ml vial IV PRN (00:15)
[2019-05-21] MEDS: morphine 2 MG/ML inj. syringe IV PRN (00:25)
[2019-05-21] MEDS: normal saline 1000ml 1,000 ML IV SCH ×2 (04:55→15:03)
[2019-05-21 05:16] LABS: BASOPHILS # (AUTO) 0.1 X10'3 (0-0.2); BASOPHILS % (AUTO) 0.6 % (0-1); EOSINOPHILS # (AUTO) 0.2 X10'3 (0-0.9); EOSINOPHILS % (AUTO) 1.4 % (0-6); HEMATOCRIT 38.4 % (35.0-45.0); LYMPHOCYTES # (AUTO) 4.6 X10'3 (1.1-4.8); MEAN CORPUSCULAR HEMOGLOBIN 27.9 PG (27.0-31.0); MEAN CORPUSCULAR HGB CONC 31.2 g/dL (33.0-36.5); MEAN CORPUSCULAR VOLUME 89.4 FL (78-98); MEAN PLATELET VOLUME 7.2 FL (7.4-10.4); MONOCYTES % (AUTO) 6.8 % (2-12); NEUTROPHILS # (AUTO) 8.5 X10'3 (1.8-7.7); NEUTROPHILS % (AUTO) 59.2 % (42-75); PLATELET COUNT 355 X10'3 (140-440); RED BLOOD COUNT 4.29 X10'6 (4.20-5.60); RED CELL DISTRIBUTION WIDTH 16.5 % (11.5-14.5); WHITE BLOOD COUNT 14.3 X10'3 (4.5-11.0)
[2019-05-21 05:23] LABS: ALBUMIN 2.7 G/DL (3.4-5.0); ANION GAP 10 (8-16); BLOOD UREA NITROGEN 8 MG/DL (7-18); BUN/CREATININE RATIO 8.1 (6.6-38.0); CALCIUM 8.6 MG/DL (8.5-10.1); CHLORIDE 112 MMOL/L (99-107); CREATININE 0.99 MG/DL (0.40-0.90); GLUCOSE 81 MG/DL (70-104); POTASSIUM 3.9 MMOL/L (3.5-5.1); SODIUM 146 MMOL/L (135-145); TOTAL CARBON DIOXIDE 23.7 MMOL/L (24-32); eGFR 59 ML/MIN
[2019-05-21 05:44] VITALS: BP 157/107
--- NOTE | 2019-05-21 05:45 | NUR ---
CALLED DR. WINTERS FOR PATIENT'S HR ON 130'S TO 140'S BP 153/107 TEMP 99.7 AXILLARY WITH ORDER TO DO EKG.
--- NOTE | 2019-05-21 05:57 | NUR ---
CALLED DR. WINTERS AND ASKED TO SHOW HIM PATIENT'S EKG BUT JUST ASKED TO READ REPORT AND WAS READ TO HIM WITH ORDER TO GIVE CARDIZEM 120 MG 1 DOSE NOW.
[2019-05-21] MEDS ORDERED: diltiazem CD 120mg capsule (once-daily) PO ONE (06:00)
--- NOTE | 2019-05-21 06:28 | NUR ---
Problems reprioritized. Patient report given, questions answered & plan of care reviewed with JESSICA MANNING.
--- NOTE | 2019-05-21 06:30 | NUR ---
Patient in room YADIEL 358. I have received report from KERRI Naidu and had the opportunity to ask questions and assume patient care.
[2019-05-21 07:25] VITALS: BP 155/93
[2019-05-21] MEDS ORDERED: azithromycin/NS 500mg/250ml 250 ML IV SCH (08:00)
[2019-05-21] MEDS: CefTRIAXone/D5W-Rocephin 1gm 50 ML IV SCH (08:48)
[2019-05-21] MEDS: predniSONE 5mg tablet PO SCH ×2 (08:49→20:02)
[2019-05-21] MEDS: metoprolol tartrate 50mg tablet PO SCH ×2 (08:49→19:59)
[2019-05-21] MEDS: topiramate 100mg tablet PO SCH ×2 (08:50→20:02)
[2019-05-21] MEDS: guanFACINE 1 mg tablet PO SCH (08:50)
[2019-05-21] MEDS: levoTHYROXINE 25mcg tablet PO SCH (08:50)
[2019-05-21] MEDS: enoxaparin 40mg/0.4ml syringe SUBCUT SCH (08:51)
[2019-05-21] MEDS: HYDROcodone/acetaminophen 5mg/325mg tablet PO PRN ×2 (08:56→18:24)
[2019-05-21] MEDS: citalopram 20mg tablet PO SCH ×2 (09:58→20:02)
[2019-05-21 11:30] VITALS: BP 127/87
[2019-05-21] MEDS ORDERED: FLUT16SP10 NS (13:52)
[2019-05-21] MEDS ORDERED: NITR0.4T SL (13:52)
[2019-05-21] MEDS ORDERED: ONDA4TAB12 PO (13:52)
[2019-05-21] MEDS ORDERED: MULT-955 PO (13:53)
[2019-05-21] MEDS ORDERED: TIZA4CAP PO (16:49)
--- NOTE | 2019-05-21 18:10 | NUR ---
Patient in room YADIEL 358. I have received report from Gerda MANNING and had the opportunity to ask questions and assume patient care.
--- NOTE | 2019-05-21 18:20 | NUR ---
Problems reprioritized. Patient report given, questions answered & plan of care reviewed with KERRI Magana.
[2019-05-21 20:00] VITALS: BP 143/94
[2019-05-21] MEDS: lactobacillus rhamnosus 10,000 MMU CELLS/CAPSULE PO SCH (20:00)
[2019-05-21] MEDS ORDERED: OLANZAPINE PO SCH (21:00)
[2019-05-21] MEDS: OLANZAPINE 5 MG TABLET PO SCH (21:24)
[2019-05-21] MEDS: olanzapine 10mg tablet PO SCH (21:24)
[2019-05-22] VITALS: BP 121/73
[2019-05-22] MEDS: normal saline 1000ml 1,000 ML IV SCH ×3 (01:12→21:24)
[2019-05-22] MEDS: HYDROcodone/acetaminophen 5mg/325mg tablet PO PRN ×3 (02:40→19:42)
--- NOTE | 2019-05-22 06:27 | NUR ---
Problems reprioritized. Patient report given, questions answered & plan of care reviewed with Arline MANNING.
[2019-05-22 07:26] LABS: BASOPHILS % (AUTO) 0.4 % (0-1); EOSINOPHILS # (AUTO) 0.1 X10'3 (0-0.9); EOSINOPHILS % (AUTO) 0.7 % (0-6); HEMATOCRIT 34.7 % (35.0-45.0); HEMOGLOBIN 11.2 g/dl (12.0-16.0); LYMPHOCYTES # (AUTO) 2.6 X10'3 (1.1-4.8); LYMPHOCYTES % (AUTO) 23.6 % (21-51); MEAN CORPUSCULAR HEMOGLOBIN 28.5 PG (27.0-31.0); MEAN CORPUSCULAR HGB CONC 32.1 g/dL (33.0-36.5); MEAN CORPUSCULAR VOLUME 88.5 FL (78-98); MEAN PLATELET VOLUME 7.3 FL (7.4-10.4); MONOCYTES # (AUTO) 0.6 X10'3 (0-0.9); MONOCYTES % (AUTO) 5.3 % (2-12); NEUTROPHILS # (AUTO) 7.7 X10'3 (1.8-7.7); PLATELET COUNT 336 X10'3 (140-440); RED BLOOD COUNT 3.92 X10'6 (4.20-5.60); RED CELL DISTRIBUTION WIDTH 15.8 % (11.5-14.5)
[2019-05-22 07:28] VITALS: BP 126/83
[2019-05-22 07:42] LABS: ALBUMIN 2.5 G/DL (3.4-5.0); ANION GAP 7 (8-16); BLOOD UREA NITROGEN 9 MG/DL (7-18); BUN/CREATININE RATIO 11.7 (6.6-38.0); CALCIUM 8.8 MG/DL (8.5-10.1); CHLORIDE 113 MMOL/L (99-107); CREATININE 0.77 MG/DL (0.40-0.90); GLUCOSE 92 MG/DL (70-104); POTASSIUM 3.7 MMOL/L (3.5-5.1); SODIUM 146 MMOL/L (135-145); TOTAL CARBON DIOXIDE 25.7 MMOL/L (24-32); eGFR 79 ML/MIN
[2019-05-22] MEDS: guanFACINE 1 mg tablet PO SCH (08:48)
[2019-05-22] MEDS: metoprolol tartrate 50mg tablet PO SCH ×2 (08:48→19:35)
[2019-05-22] MEDS: lactobacillus rhamnosus 10,000 MMU CELLS/CAPSULE PO SCH ×2 (08:48→19:35)
[2019-05-22] MEDS: levoTHYROXINE 25mcg tablet PO SCH (08:48)
[2019-05-22] MEDS: topiramate 100mg tablet PO SCH ×2 (08:49→19:35)
[2019-05-22] MEDS: citalopram 20mg tablet PO SCH ×2 (08:49→19:35)
[2019-05-22] MEDS: predniSONE 5mg tablet PO SCH ×2 (08:49→19:36)
[2019-05-22] MEDS: enoxaparin 40mg/0.4ml syringe SUBCUT SCH (08:52)
[2019-05-22] MEDS: CefTRIAXone/D5W-Rocephin 1gm 50 ML IV SCH (10:43)
[2019-05-22 11:32] VITALS: BP 134/89
[2019-05-22] MEDS: morphine 2 MG/ML inj. syringe IV PRN ×2 (15:59→20:56)
--- NOTE | 2019-05-22 16:06 | NUR ---
Patient stated that it is normal to have a bowel movement every 4-5 days. refused milk of mag, however she did take colace.
--- NOTE | 2019-05-22 18:02 | NUR ---
Problems reprioritized. Patient report given, questions answered & plan of care reviewed with KERRI Magana.
[2019-05-22 20:00] VITALS: BP 131/76
[2019-05-22] MEDS: olanzapine 10mg tablet PO SCH (20:56)
[2019-05-22] MEDS: OLANZAPINE 5 MG TABLET PO SCH (20:56)
[2019-05-23] VITALS: BP 125/70
[2019-05-23 06:03] LABS: BASOPHILS # (AUTO) 0.1 X10'3 (0-0.2); BASOPHILS % (AUTO) 0.5 % (0-1); EOSINOPHILS # (AUTO) 0.1 X10'3 (0-0.9); EOSINOPHILS % (AUTO) 0.9 % (0-6); HEMATOCRIT 35.5 % (35.0-45.0); HEMOGLOBIN 11.5 g/dl (12.0-16.0); LYMPHOCYTES # (AUTO) 2.4 X10'3 (1.1-4.8); LYMPHOCYTES % (AUTO) 23.7 % (21-51); MEAN CORPUSCULAR HEMOGLOBIN 28.8 PG (27.0-31.0); MEAN CORPUSCULAR HGB CONC 32.2 g/dL (33.0-36.5); MEAN CORPUSCULAR VOLUME 89.4 FL (78-98); MEAN PLATELET VOLUME 7.6 FL (7.4-10.4); MONOCYTES # (AUTO) 0.5 X10'3 (0-0.9); MONOCYTES % (AUTO) 4.7 % (2-12); NEUTROPHILS # (AUTO) 7.1 X10'3 (1.8-7.7); NEUTROPHILS % (AUTO) 70.2 % (42-75); PLATELET COUNT 288 X10'3 (140-440); RED BLOOD COUNT 3.97 X10'6 (4.20-5.60); RED CELL DISTRIBUTION WIDTH 16.1 % (11.5-14.5); WHITE BLOOD COUNT 10.2 X10'3 (4.5-11.0)
--- NOTE | 2019-05-23 06:42 | NUR ---
Problems reprioritized. Patient report given, questions answered & plan of care reviewed with Melody MANNING.
[2019-05-23 06:46] LABS: ALBUMIN 2.5 G/DL (3.4-5.0); ANION GAP 10 (8-16); BLOOD UREA NITROGEN 10 MG/DL (7-18); BUN/CREATININE RATIO 13.3 (6.6-38.0); CALCIUM 8.9 MG/DL (8.5-10.1); CHLORIDE 114 MMOL/L (99-107); CREATININE 0.75 MG/DL (0.40-0.90); GLUCOSE 108 MG/DL (70-104); SODIUM 147 MMOL/L (135-145); TOTAL CARBON DIOXIDE 23.1 MMOL/L (24-32); eGFR 82 ML/MIN
[2019-05-23 06:50] LABS: POTASSIUM 4.4 MMOL/L (3.5-5.1)
[2019-05-23 07:15] VITALS: BP 158/93
[2019-05-23] MEDS: levoTHYROXINE 25mcg tablet PO SCH (08:25)
[2019-05-23] MEDS: CefTRIAXone/D5W-Rocephin 1gm 50 ML IV SCH (08:25)
[2019-05-23] MEDS: citalopram 20mg tablet PO SCH (08:25)
[2019-05-23] MEDS: predniSONE 5mg tablet PO SCH (08:25)
[2019-05-23] MEDS: normal saline 1000ml 1,000 ML IV SCH (08:25)
[2019-05-23] MEDS: enoxaparin 40mg/0.4ml syringe SUBCUT SCH (08:26)
[2019-05-23] MEDS: lactobacillus rhamnosus 10,000 MMU CELLS/CAPSULE PO SCH (08:26)
[2019-05-23] MEDS: topiramate 100mg tablet PO SCH (08:26)
[2019-05-23] MEDS: metoprolol tartrate 50mg tablet PO SCH (08:26)
[2019-05-23] MEDS: guanFACINE 1 mg tablet PO SCH (08:26)
[2019-05-23] MEDS: morphine 2 MG/ML inj. syringe IV PRN (08:27)
[2019-05-23] MEDS ORDERED: LEVO500T2 PO (10:06)
--- NOTE | 2019-05-23 10:57 | NUR ---
PATIENT AWAITING CAREGIVER TO WIND ENERGY ENGINEER VAN AND BRING CLOTHES SO THAT PATIENT CAN SAFELY DISCHARGE BACK HOME.
[2019-05-23 11:22] VITALS: BP 130/85
--- NOTE | 2019-05-23 12:31 | NUR ---
Patient discharged home with 24hr caregiver. Transferred into her own wheelchair. Stable and appropriate. IV removed, monitoring coordinator removed. New prescriptions called into [facility] on [address]. All belongings taken from room.
--- NOTE | 2019-05-23 12:33 | NUR ---
Discharge instructions given and reviewed with patient and caregiver.
== END 2019-05-23 12:29 | disposition home or self-care (01) | DRG 139 ==
LOC: ER 21:45 → SUR 3N 22:09
PROVIDERS: ADMIT Internal Medicine; ATTEND Internal Medicine
DX: J18.9 Pneumonia, unspecified organism (principal); E87.2 Acidosis; I11.0 Hypertensive heart disease with heart failure; I50.9 Heart failure, unspecified; G80.9 Cerebral palsy, unspecified; E03.9 Hypothyroidism, unspecified; K21.9 Gastro-esophageal reflux disease without esophagitis; F32.9 Major depressive disorder, single episode, unspecified; E78.5 Hyperlipidemia, unspecified; Z88.8 Allergy status to other drugs, medicaments and biological substances; Z88.0 Allergy status to penicillin
CPT/HCPCS: 36415; 71045; 71275; 80048; 80053; 83605; 83735; 83880; 84145; 84443; 84484; 85025; 85379; 85610; 85730; 87040; 87081; 93005; 94760; 96365; 96372; 96375; 99285; G0378; J0456; J0696; J1650; J1956; J2060; J2270; J2405; J7030; J7512; Q9967

== ENCOUNTER 2019-06-01 19:59 | Emergency (ER) | payer MEDICAID ==
[~2019-06-01] VITALS: Ht 149.9 cm; Wt 72.7 kg
[~2019-06-01 19:59] MED LIST changes: -ALBU18HF2 INH; -BUDE10.22 INH; -CLOT15CR10 TP; +FLUT16SP10 NS; -LACT1CAP65 PO; +LEVO500T2 PO; -MULT-933 PO; +MULT-955 PO; +NITR0.4T SL; -NITR0.4T48 SL; +OLAN5TAB3 PO; +ONDA4TAB12 PO; -PRED50TA PO; +PRED5TAB PO; +SIMV20TA5 PO; +TIZA2TAB5 PO; -TIZA4TAB11 PO
[2019-06-01 22:00] LABS: BASOPHILS % (AUTO) 0.3 % (0-1); EOSINOPHILS # (AUTO) 0.1 X10'3 (0-0.9); EOSINOPHILS % (AUTO) 0.9 % (0-6); HEMATOCRIT 39.3 % (35.0-45.0); HEMOGLOBIN 12.6 g/dl (12.0-16.0); LYMPHOCYTES # (AUTO) 4.6 X10'3 (1.1-4.8); LYMPHOCYTES % (AUTO) 30.3 % (21-51); MEAN CORPUSCULAR HEMOGLOBIN 28.5 PG (27.0-31.0); MEAN CORPUSCULAR VOLUME 89.1 FL (78-98); MEAN PLATELET VOLUME 7.4 FL (7.4-10.4); MONOCYTES # (AUTO) 1.1 X10'3 (0-0.9); MONOCYTES % (AUTO) 7.2 % (2-12); NEUTROPHILS # (AUTO) 9.3 X10'3 (1.8-7.7); NEUTROPHILS % (AUTO) 61.3 % (42-75); PLATELET COUNT 393 X10'3 (140-440); RED BLOOD COUNT 4.41 X10'6 (4.20-5.60); RED CELL DISTRIBUTION WIDTH 16.4 % (11.5-14.5); WHITE BLOOD COUNT 15.2 X10'3 (4.5-11.0)
[2019-06-01 22:14] LABS: ALANINE AMINOTRANSFERASE 64 U/L (12-78); ALBUMIN 3.2 G/DL (3.4-5.0); ALBUMIN/GLOBULIN RATIO 0.7 (1.1-1.5); ALKALINE PHOSPHATASE 144 IU/L (46-116); ANION GAP 7 (8-16); ASPARTATE AMINO TRANSFERASE 36 U/L (10-37); BILIRUBIN,TOTAL 0.2 MG/DL (0.1-1.0); BLOOD UREA NITROGEN 15 MG/DL (7-18); BUN/CREATININE RATIO 14.6 (6.6-38.0); CALCIUM 8.8 MG/DL (8.5-10.1); CHLORIDE 109 MMOL/L (99-107); CREATININE 1.03 MG/DL (0.40-0.90); GLUCOSE 125 MG/DL (70-104); POTASSIUM 4.5 MMOL/L (3.5-5.1); SODIUM 145 MMOL/L (135-145); TOTAL CARBON DIOXIDE 29.4 MMOL/L (24-32); TOTAL PROTEIN 7.7 G/DL (6.4-8.2); eGFR 57 ML/MIN
[2019-06-01 22:19] LABS: PARTIAL THROMBOPLASTIN TIME 24 SECONDS (22-32)
--- NOTE | 2019-06-01 22:57 | NUR ---
Patient states that chest pain is worse and that she is dizzy lighthead, and nauseas. Patient's vitals are HR 89, resp 20, O2 98 on room air, BP 123/75. Discussed with Dr Miller he gave verbal order for aspirin and nitro SL to be given at this time.
[2019-06-01] MEDS ORDERED: aspirin 81mg tab.chew PO ONE (23:10)
[2019-06-02 00:32] VITALS: BP 115/84
== END 2019-06-02 00:33 | disposition home or self-care (01) ==
LOC: ER 19:59
DX: R07.89 Other chest pain (principal); I10 Essential (primary) hypertension; J45.909 Unspecified asthma, uncomplicated; K21.9 Gastro-esophageal reflux disease without esophagitis; G89.29 Other chronic pain; Z98.890 Other specified postprocedural states; Z88.5 Allergy status to narcotic agent; Z88.6 Allergy status to analgesic agent; Z88.0 Allergy status to penicillin; Z88.8 Allergy status to other drugs, medicaments and biological substances; Z79.899 Other long term (current) drug therapy
CPT/HCPCS: 36415; 71045; 80053; 83735; 83880; 84484; 85025; 85610; 85730; 93005; 99284

== ENCOUNTER 2019-06-18 19:43 | Emergency (ER) | payer MEDICAID ==
[~2019-06-18] VITALS: Ht 149.9 cm; Wt 72.0 kg
[2019-06-18] MEDS ORDERED: albuterol 2.5 MG/3 ML nebule NEB ONE (19:55)
[2019-06-18 21:34] VITALS: BP 116/69
== END 2019-06-18 21:36 | disposition home or self-care (01) ==
LOC: ER 19:44
DX: T17.928A Food in respiratory tract, part unspecified causing other injury, initial encounter (principal); I11.0 Hypertensive heart disease with heart failure; I50.9 Heart failure, unspecified; I10 Essential (primary) hypertension; J45.909 Unspecified asthma, uncomplicated; K21.9 Gastro-esophageal reflux disease without esophagitis; G89.29 Other chronic pain; F41.9 Anxiety disorder, unspecified; F32.9 Major depressive disorder, single episode, unspecified; Z21 Asymptomatic human immunodeficiency virus [HIV] infection status; Z86.14 Personal history of Methicillin resistant Staphylococcus aureus infection; Z98.890 Other specified postprocedural states; X58.XXXA Exposure to other specified factors, initial encounter; Y93.89 Activity, other specified; Y92.89 Other specified places as the place of occurrence of the external cause; Y99.8 Other external cause status
CPT/HCPCS: 71045; 94640; 94760; 99283

== ENCOUNTER 2019-06-27 19:18 | Inpatient (IN) | payer MEDICAID ==
[~2019-06-27] VITALS: Ht 149.9 cm; Wt 77.3 kg
[2019-06-27 19:42] LABS: BASOPHILS # (AUTO) 0.2 X10'3 (0-0.2); RED BLOOD COUNT 4.49 X10'6 (4.20-5.60)
[2019-06-27 19:43] LABS: BASOPHILS % (AUTO) 0.9 % (0-1); EOSINOPHILS # (AUTO) 0.2 X10'3 (0-0.9); EOSINOPHILS % (AUTO) 1.1 % (0-6); HEMATOCRIT 39.8 % (35.0-45.0); HEMOGLOBIN 12.9 g/dl (12.0-16.0); LYMPHOCYTES # (AUTO) 6.7 X10'3 (1.1-4.8); LYMPHOCYTES % (AUTO) 29.6 % (21-51); MEAN CORPUSCULAR HEMOGLOBIN 28.6 PG (27.0-31.0); MEAN CORPUSCULAR HGB CONC 32.3 g/dL (33.0-36.5); MEAN CORPUSCULAR VOLUME 88.6 FL (78-98); MEAN PLATELET VOLUME 7.7 FL (7.4-10.4); MONOCYTES # (AUTO) 1.3 X10'3 (0-0.9); MONOCYTES % (AUTO) 5.9 % (2-12); NEUTROPHILS # (AUTO) 14.2 X10'3 (1.8-7.7); NEUTROPHILS % (AUTO) 62.5 % (42-75); PLATELET COUNT 417 X10'3 (140-440); RED CELL DISTRIBUTION WIDTH 16.4 % (11.5-14.5); WHITE BLOOD COUNT 22.6 X10'3 (4.5-11.0)
[2019-06-27 20:00] LABS: TOTAL CELLS COUNTED 100
[2019-06-27 20:01] LABS: ALANINE AMINOTRANSFERASE 63 U/L (12-78); ALBUMIN 3.2 G/DL (3.4-5.0); ALBUMIN/GLOBULIN RATIO 0.8 (1.1-1.5); ALKALINE PHOSPHATASE 148 IU/L (46-116); ANION GAP 12 (8-16); ANISOCYTOSIS 1+; ASPARTATE AMINO TRANSFERASE 37 U/L (10-37); BILIRUBIN,TOTAL 0.2 MG/DL (0.1-1.0); BLOOD UREA NITROGEN 15 MG/DL (7-18); BUN/CREATININE RATIO 15.8 (6.6-38.0); CALCIUM 8.4 MG/DL (8.5-10.1); CHLORIDE 111 MMOL/L (99-107); CREATININE 0.95 MG/DL (0.40-0.90); GLUCOSE 84 MG/DL (70-104); PLATELET ESTIMATE NORMAL; POTASSIUM 3.6 MMOL/L (3.5-5.1); SODIUM 148 MMOL/L (135-145); TOTAL CARBON DIOXIDE 25.3 MMOL/L (24-32); TOTAL PROTEIN 7.3 G/DL (6.4-8.2); eGFR 62 ML/MIN
[2019-06-27] MEDS ORDERED: ondansetron/PF 4mg/2ml inj IV ONE (20:05)
[2019-06-27] MEDS ORDERED: nitroGLYCERIN 0.4mg SUBLingual tab SL PRN ×3 (20:05→23:25)
[2019-06-27] MEDS ORDERED: glucagon, human recombinant 1mg kit IV ONE (20:05)
[2019-06-27] MEDS ORDERED: potassium CL 10mEq/100ml bag 100 ML IV PRN ×2 (21:20)
[2019-06-27] MEDS ORDERED: magnesium Cl slow-release 64mg tablet PO PRN (21:20)
[2019-06-27] MEDS ORDERED: magnesium hydroxide 30ml (MOM) UD suspension PO PRN (21:20)
[2019-06-27] MEDS ORDERED: ondansetron/PF 4mg/2ml inj IV PRN (21:20)
[2019-06-27] MEDS ORDERED: acetaminophen 325mg tablet PO PRN ×2 (21:20)
[2019-06-27] MEDS ORDERED: potassium Cl 20 mEq SR tablet PO PRN (21:20)
[2019-06-27] MEDS ORDERED: magnesium 4gm in 100ml NS 100 ML IV PRN (21:20)
[2019-06-27] MEDS ORDERED: mag hydrox/Alum hydrox/simeth 30ml oral suspension PO PRN (21:20)
[2019-06-27] MEDS ORDERED: magnesium 2GM in 50ml NS 50 ML IV PRN (21:20)
[2019-06-27] MEDS ORDERED: LORazepam 2 mg/ml vial IV ONE (21:40)
[2019-06-27] MEDS ORDERED: docusate sod 100mg capsule PO PRN (22:15)
[2019-06-27] MEDS ORDERED: ondansetron 4mg rapidly disintigrating tab PO PRN (22:15)
[2019-06-27 22:30] VITALS: BP 144/96
--- NOTE | 2019-06-27 22:30 | NUR ---
Received report from Uday MANNING in the ER. Pt arrived on the unit via gurney with VSS, accompanied by caregiver. No signs of distress, will continue to monitor.
[2019-06-27] MEDS: HYDROcodone/acetaminophen 5mg/325mg tablet PO PRN (22:48)
[2019-06-28] VITALS (17 sets, daily range): BP systolic 90–168; BP diastolic 56–100
[2019-06-28] MEDS ORDERED: normal saline 1000ml 1,000 ML IV ONE (02:25)
[2019-06-28] MEDS ORDERED: acetaminophen 650mg rectal suppository RC PRN (05:05)
[2019-06-28] MEDS ORDERED: LORazepam 2 mg/ml vial IV PRN (05:05)
[2019-06-28 06:06] LABS: BASOPHILS # (AUTO) 0.1 X10'3 (0-0.2); BASOPHILS % (AUTO) 0.5 % (0-1); EOSINOPHILS # (AUTO) 0.2 X10'3 (0-0.9); EOSINOPHILS % (AUTO) 1.6 % (0-6); HEMATOCRIT 36.5 % (35.0-45.0); HEMOGLOBIN 11.8 g/dl (12.0-16.0); LYMPHOCYTES # (AUTO) 4.6 X10'3 (1.1-4.8); LYMPHOCYTES % (AUTO) 33.8 % (21-51); MEAN CORPUSCULAR HEMOGLOBIN 28.9 PG (27.0-31.0); MEAN CORPUSCULAR HGB CONC 32.2 g/dL (33.0-36.5); MEAN CORPUSCULAR VOLUME 89.5 FL (78-98); MEAN PLATELET VOLUME 7.6 FL (7.4-10.4); MONOCYTES # (AUTO) 0.8 X10'3 (0-0.9); MONOCYTES % (AUTO) 5.9 % (2-12); NEUTROPHILS % (AUTO) 58.2 % (42-75); PLATELET COUNT 365 X10'3 (140-440); RED BLOOD COUNT 4.08 X10'6 (4.20-5.60); RED CELL DISTRIBUTION WIDTH 16.8 % (11.5-14.5); WHITE BLOOD COUNT 13.7 X10'3 (4.5-11.0)
[2019-06-28 06:25] LABS: ALBUMIN 2.9 G/DL (3.4-5.0); ANION GAP 11 (8-16); BLOOD UREA NITROGEN 14 MG/DL (7-18); BUN/CREATININE RATIO 14.7 (6.6-38.0); CALCIUM 8.7 MG/DL (8.5-10.1); CHLORIDE 112 MMOL/L (99-107); CREATININE 0.95 MG/DL (0.40-0.90); GLUCOSE 97 MG/DL (70-104); MAGNESIUM 1.9 MG/DL (1.5-2.4); POTASSIUM 3.8 MMOL/L (3.5-5.1); SODIUM 146 MMOL/L (135-145); TOTAL CARBON DIOXIDE 23.4 MMOL/L (24-32); eGFR 62 ML/MIN
--- NOTE | 2019-06-28 06:30 | NUR ---
Patient in room YADIEL 353. I have received report from Kalyani MANNING and had the opportunity to ask questions and assume patient care. Patient resting eyes closed respirations even. Will continue to monitor.
--- NOTE | 2019-06-28 06:39 | NUR ---
Problems reprioritized. Patient report given, questions answered & plan of care reviewed with Lorena MANNING and Rosa MANNING.
[2019-06-28] MEDS ORDERED: MIDAZolam 5mg/ml 2ml vial IV ONE (07:45)
[2019-06-28] MEDS ORDERED: fentaNYL/PF 50MCG/1 ML 2ML syringe IV ONE (07:45)
[2019-06-28] MEDS ORDERED: LIDOcaine Viscous 15ml cup MM ONE (07:50)
[2019-06-28] MEDS ORDERED: MIDAZolam 5mg/5ml vial IV ONE (07:55)
[2019-06-28] MEDS ORDERED: predniSONE 20 mg tablet PO SCH (08:00)
[2019-06-28] MEDS: fluticasone nasal spray 16GM bottle NS SCH ×2 (08:00→09:54)
[2019-06-28] MEDS: K and/or MAG REPLACEMENT MC SCH (08:00)
[2019-06-28] MEDS: multivitamins, therapeutics tablet PO SCH (09:55)
[2019-06-28] MEDS: citalopram 20mg tablet PO SCH ×2 (09:55→19:55)
[2019-06-28] MEDS: HYDROcodone/acetaminophen 5mg/325mg tablet PO PRN ×2 (09:56→20:53)
[2019-06-28] MEDS: topiramate 100mg tablet PO SCH ×2 (09:58→19:55)
[2019-06-28] MEDS: metoprolol tartrate 50mg tablet PO SCH ×2 (09:59→19:56)
[2019-06-28] MEDS: levoTHYROXINE 25mcg tablet PO SCH (10:00)
--- NOTE | 2019-06-28 10:00 | NUR ---
Isac MANNING called to give report, patient had severe candidia in esophagus, will continue to monitor for changes in medications and treatment.
[2019-06-28] MEDS: tizanidine 4mg tablet PO SCH ×3 (10:01→20:52)
[2019-06-28] MEDS: heparin, porcine 5000 units/ml vial SQ SCH ×2 (10:04→19:55)
[2019-06-28] MEDS: fluconazole 150mg tablet PO SCH (10:07)
--- NOTE | 2019-06-28 11:46 | NUR ---
Dr. Angulo decreased prednisone by 0.5 to 10 mg, nystatin oral suspension ordered, nasal spray discontinued due to patient does no use. Received call from dietitian who requested to discuss with MD about getting order for proton pump inhibitor. will continue to monitor.
--- NOTE | 2019-06-28 12:23 | NUR ---
Discussed with Dr. Angulo blood pressure decreasing from SBP 143 to 90 and now 98. States continue to monitor at this time. Notify is continues to decrease. Additionally, received order for Protonix 40 mg orally daily, will continue to monitor.
--- NOTE | 2019-06-28 14:57 | NUR ---
Initial: Pt admit after choking on hamburger hx cerebral palsy w/ caregiver, GERD, dysphagia, and previously had G-tube w/ trach but both no longer present. Per GI MD; EGD shows severe alex esophagitis w/ small diverticulum in stomach antrum. Advanced to full liquids PO pending. Per prior outpatient Barium Swallow eval pt needs finely chopped meats, small straw w/ liquids, and 5-7ml bolus each swallow to tolerate PO. SP note also mentions pt drinks up to 102oz Pepsi and 36oz milk daily and pt declining to decrease soda consumption. RD d/w RN regarding PPI given soda and GERD hx per MD approval w/ DX. Will monitor for diet advancement further SENIOR PROGRAM PLANNER recs; will follow prior SENIOR PROGRAM PLANNER recs once on solids. Will monitor for ONS needs pending PO. Rec: 1. advance diet per MD/SP to regular; finely chopped meats once solid foods w/ straws for liquids per prior SP barium note. 2. monitor for ONS needs 3. PPI per MD approval given GERD and high soda intake non-compliance hx 4. routine bowel care 5. may benefit from new barium swallow eval per MD approval 6. wt per rx Addendum: 06/28/19 at [address] Amended: Links added.
--- NOTE | 2019-06-28 15:00 | NUR ---
Patient has been resting with normal respirations, sleeping, even with 3 L/min with no distress, O2 saturation 92-95%. Will continue to monitor.
[2019-06-28] MEDS: nystatin 500,000 unit/5ML UD oral suspension PO SCH ×2 (15:57→20:54)
--- NOTE | 2019-06-28 18:57 | NUR ---
Problems reprioritized. Patient report given, questions answered & plan of care reviewed with Peyton RN. Patient resting with caregiver at bedside.
--- NOTE | 2019-06-28 18:59 | NUR ---
Patient in room YADIEL 353. I have received report from ISHAAN MANNING and had the opportunity to ask questions and assume patient care.
[2019-06-28] MEDS: guanFACINE 1 mg tablet PO SCH (20:53)
[2019-06-28] MEDS: OLANZAPINE 5 MG TABLET PO SCH (20:53)
[2019-06-28] MEDS: olanzapine 10mg tablet PO SCH (20:54)
[2019-06-28] MEDS: SIMVASTATIN 20 MG PO SCH (20:56)
[2019-06-29] VITALS: BP 89/60
[2019-06-29 05:34] LABS: BASOPHILS # (AUTO) 0.1 X10'3 (0-0.2); BASOPHILS % (AUTO) 0.7 % (0-1); EOSINOPHILS # (AUTO) 0.2 X10'3 (0-0.9); EOSINOPHILS % (AUTO) 1.9 % (0-6); HEMATOCRIT 34.4 % (35.0-45.0); LYMPHOCYTES # (AUTO) 3.9 X10'3 (1.1-4.8); LYMPHOCYTES % (AUTO) 35.8 % (21-51); MEAN CORPUSCULAR HEMOGLOBIN 28.6 PG (27.0-31.0); MEAN CORPUSCULAR HGB CONC 32.1 g/dL (33.0-36.5); MEAN CORPUSCULAR VOLUME 89.2 FL (78-98); MEAN PLATELET VOLUME 7.2 FL (7.4-10.4); MONOCYTES # (AUTO) 0.6 X10'3 (0-0.9); MONOCYTES % (AUTO) 5.7 % (2-12); NEUTROPHILS # (AUTO) 6.1 X10'3 (1.8-7.7); NEUTROPHILS % (AUTO) 55.9 % (42-75); PLATELET COUNT 326 X10'3 (140-440); RED BLOOD COUNT 3.85 X10'6 (4.20-5.60); WHITE BLOOD COUNT 10.9 X10'3 (4.5-11.0)
[2019-06-29 05:54] LABS: ALBUMIN 2.6 G/DL (3.4-5.0); ANION GAP 8 (8-16); BLOOD UREA NITROGEN 9 MG/DL (7-18); BUN/CREATININE RATIO 9.2 (6.6-38.0); CALCIUM 8.7 MG/DL (8.5-10.1); CHLORIDE 111 MMOL/L (99-107); CREATININE 0.98 MG/DL (0.40-0.90); GLUCOSE 93 MG/DL (70-104); MAGNESIUM 2.1 MG/DL (1.5-2.4); POTASSIUM 3.4 MMOL/L (3.5-5.1); SODIUM 146 MMOL/L (135-145); TOTAL CARBON DIOXIDE 26.6 MMOL/L (24-32); eGFR 60 ML/MIN
[2019-06-29] MEDS: tizanidine 4mg tablet PO SCH ×4 (05:56→20:41)
--- NOTE | 2019-06-29 06:30 | NUR ---
Problems reprioritized. Patient report given, questions answered & plan of care reviewed with BACILIO MANNING.
--- NOTE | 2019-06-29 07:00 | NUR ---
Patient in room YADIEL 353. I have received report from Peyton MANNING and had the opportunity to ask questions and assume patient care.
--- NOTE | 2019-06-29 07:03 | NUR ---
Patient in room YADEIL 353. I have received report from Oliva Baptiste and had the opportunity to ask questions and assume patient care.
[2019-06-29] MEDS: pantoprazole 40mg Tablet.DR PO SCH (07:59)
[2019-06-29] MEDS: multivitamins, therapeutics tablet PO SCH (07:59)
[2019-06-29] MEDS: fluconazole 150mg tablet PO SCH (07:59)
[2019-06-29] MEDS: nystatin 500,000 unit/5ML UD oral suspension PO SCH ×3 (08:00→20:30)
[2019-06-29] MEDS: topiramate 100mg tablet PO SCH ×2 (08:00→20:20)
[2019-06-29] MEDS: K and/or MAG REPLACEMENT MC SCH (08:00)
[2019-06-29] MEDS: levoTHYROXINE 25mcg tablet PO SCH (08:00)
[2019-06-29] MEDS: predniSONE 20 mg tablet PO SCH (08:01)
[2019-06-29] MEDS: metoprolol tartrate 50mg tablet PO SCH ×2 (08:02→20:21)
[2019-06-29] MEDS: citalopram 20mg tablet PO SCH ×2 (08:03→20:20)
[2019-06-29] MEDS: heparin, porcine 5000 units/ml vial SQ SCH ×2 (08:04→20:31)
[2019-06-29] MEDS: potassium Cl 20 mEq SR tablet PO PRN ×2 (09:33→17:27)
[2019-06-29 10:36] VITALS: BP 136/86
[2019-06-29 11:00] VITALS: BP 134/87
[2019-06-29] MEDS: HYDROcodone/acetaminophen 5mg/325mg tablet PO PRN ×2 (11:34→21:08)
[2019-06-29 18:00] VITALS: BP 143/95
--- NOTE | 2019-06-29 18:14 | NUR ---
Problems reprioritized. Patient report given, questions answered & plan of care reviewed with Oliva Baptiste RN.
--- NOTE | 2019-06-29 18:30 | NUR ---
Patient in room YADIEL 353. I have received report from BACILIO MANNING AND JC RN and had the opportunity to ask questions and assume patient care.
[2019-06-29] MEDS: OLANZAPINE 5 MG TABLET PO SCH (20:19)
[2019-06-29] MEDS: olanzapine 10mg tablet PO SCH (20:19)
[2019-06-29] MEDS: guanFACINE 1 mg tablet PO SCH (20:20)
[2019-06-29] MEDS: SIMVASTATIN 20 MG PO SCH (20:21)
[2019-06-29 23:42] VITALS: BP 158/98
[2019-06-30 05:27] LABS: BASOPHILS # (AUTO) 0.1 X10'3 (0-0.2); BASOPHILS % (AUTO) 0.9 % (0-1); EOSINOPHILS # (AUTO) 0.3 X10'3 (0-0.9); HEMATOCRIT 35.2 % (35.0-45.0); HEMOGLOBIN 11.3 g/dl (12.0-16.0); LYMPHOCYTES # (AUTO) 3.8 X10'3 (1.1-4.8); LYMPHOCYTES % (AUTO) 42.5 % (21-51); MEAN CORPUSCULAR HEMOGLOBIN 28.7 PG (27.0-31.0); MEAN CORPUSCULAR VOLUME 89.6 FL (78-98); MEAN PLATELET VOLUME 7.4 FL (7.4-10.4); MONOCYTES # (AUTO) 0.5 X10'3 (0-0.9); MONOCYTES % (AUTO) 5.2 % (2-12); NEUTROPHILS # (AUTO) 4.3 X10'3 (1.8-7.7); NEUTROPHILS % (AUTO) 48.4 % (42-75); PLATELET COUNT 338 X10'3 (140-440); RED BLOOD COUNT 3.93 X10'6 (4.20-5.60)
[2019-06-30 05:54] LABS: ALBUMIN 2.7 G/DL (3.4-5.0); ANION GAP 6 (8-16); BLOOD UREA NITROGEN 7 MG/DL (7-18); BUN/CREATININE RATIO 7.4 (6.6-38.0); CALCIUM 8.6 MG/DL (8.5-10.1); CHLORIDE 112 MMOL/L (99-107); CREATININE 0.95 MG/DL (0.40-0.90); GLUCOSE 91 MG/DL (70-104); MAGNESIUM 1.9 MG/DL (1.5-2.4); POTASSIUM 3.8 MMOL/L (3.5-5.1); SODIUM 145 MMOL/L (135-145); TOTAL CARBON DIOXIDE 27.2 MMOL/L (24-32); eGFR 62 ML/MIN
[2019-06-30] MEDS: tizanidine 4mg tablet PO SCH ×3 (05:55→21:03)
--- NOTE | 2019-06-30 06:30 | NUR ---
Problems reprioritized. Patient report given, questions answered & plan of care reviewed with BACILIO MANNING AND JC MANNING.
--- NOTE | 2019-06-30 06:35 | NUR ---
Patient in room YADIEL 353. I have received report from BENEDICT MANNING and had the opportunity to ask questions and assume patient care.
[2019-06-30] MEDS: fluconazole 100mg tablet PO SCH (07:19)
[2019-06-30] MEDS: multivitamins, therapeutics tablet PO SCH (07:19)
[2019-06-30] MEDS: metoprolol tartrate 50mg tablet PO SCH ×2 (07:20→21:20)
[2019-06-30] MEDS: citalopram 20mg tablet PO SCH ×2 (07:20→21:01)
[2019-06-30] MEDS: pantoprazole 40mg Tablet.DR PO SCH (07:20)
[2019-06-30] MEDS: predniSONE 20 mg tablet PO SCH (07:21)
[2019-06-30] MEDS: topiramate 100mg tablet PO SCH ×2 (07:21→21:01)
[2019-06-30] MEDS: levoTHYROXINE 25mcg tablet PO SCH (07:22)
[2019-06-30] MEDS: heparin, porcine 5000 units/ml vial SQ SCH ×2 (07:23→21:03)
[2019-06-30] MEDS: nystatin 500,000 unit/5ML UD oral suspension PO SCH ×3 (07:23→21:04)
[2019-06-30] MEDS: HYDROcodone/acetaminophen 5mg/325mg tablet PO PRN (07:24)
[2019-06-30 08:00] VITALS: BP 133/90
[2019-06-30] MEDS: K and/or MAG REPLACEMENT MC SCH (08:00)
[2019-06-30] MEDS ORDERED: ALUM HYDROX PO ONE ×3 (10:55)
[2019-06-30] MEDS ORDERED: [UNRECOGNIZED DRUG - OTHER] PO ONE ×3 (10:55)
[2019-06-30] MEDS ORDERED: MAG PO ONE ×3 (10:55)
[2019-06-30] MEDS ORDERED: LIDOCAINE VISCOUS PO ONE ×3 (10:55)
[2019-06-30] MEDS ORDERED: SIMETH PO ONE ×3 (10:55)
[2019-06-30 11:00] VITALS: BP 116/80
[2019-06-30] MEDS ORDERED: HYDROcodone/acetaminophen 5mg/325mg tablet PO PRN (11:15)
[2019-06-30] MEDS: ipratropium/albuterol 3ml nebule NEB PRN ×2 (15:42→20:00)
--- NOTE | 2019-06-30 15:54 | NUR ---
Dimished strength right arm, but able to lining cleaner. Left side weaker than right lining cleaner. Addendum: 06/30/19 at 1620 by Ricardo MELO Amended: Links added.
--- NOTE | 2019-06-30 16:15 | NUR ---
Rt and personal care service provider in room 353 let staff know that patient was observed to have seizure whilst in wheelchair during RT TMT. RT said it lasted for about a minute with patient jerking and shaking in wheel chair. VSS following this, Patient opens eyes and rousable to voice ,oreintated to person and place.DR Alexander paged
--- NOTE | 2019-06-30 17:05 | NUR ---
dR Li IN TO SEE PATIENT. MEDS ADJUSTED. PATIENT APPEARS COHERENT AND ABLE TO COMMUNICATE. WILL CONTINUE TO MONITOR.
--- NOTE | 2019-06-30 17:08 | NUR ---
Student documentation: I have reviewed interventions, assessments performed and documented by Bobby winters [facility].
[2019-06-30] MEDS: HYDROcodone/acetaminophen 5mg/325mg tablet PO SCH ×2 (17:34→21:02)
[2019-06-30 18:00] VITALS: BP 93/70
--- NOTE | 2019-06-30 18:45 | NUR ---
Problems reprioritized. Patient report given, questions answered & plan of care reviewed with Ghazala Trejo RN.
--- NOTE | 2019-06-30 18:56 | NUR ---
Patient in room YADIEL 353. I have received report from BACILIO/AGUSTIN MANNING's and had the opportunity to ask questions and assume patient care. Addendum: 06/30/19 at 1857 by Ghazala Rutherford RN Amended: Links added.
[2019-06-30] MEDS: SIMVASTATIN 20 MG PO SCH (21:00)
[2019-06-30] MEDS: OLANZAPINE 5 MG TABLET PO SCH (21:01)
[2019-06-30] MEDS: olanzapine 10mg tablet PO SCH (21:01)
[2019-06-30] MEDS: guanFACINE 1 mg tablet PO SCH (21:03)
[2019-07-01] VITALS: BP 98/75
[2019-07-01] MEDS: HYDROcodone/acetaminophen 5mg/325mg tablet PO SCH ×6 (04:00→20:30)
[2019-07-01 05:41] LABS: BASOPHILS # (AUTO) 0.1 X10'3 (0-0.2); BASOPHILS % (AUTO) 0.7 % (0-1); EOSINOPHILS # (AUTO) 0.2 X10'3 (0-0.9); EOSINOPHILS % (AUTO) 2.2 % (0-6); HEMATOCRIT 35.6 % (35.0-45.0); HEMOGLOBIN 11.3 g/dl (12.0-16.0); MEAN CORPUSCULAR HEMOGLOBIN 28.5 PG (27.0-31.0); MEAN CORPUSCULAR HGB CONC 31.8 g/dL (33.0-36.5); MEAN CORPUSCULAR VOLUME 89.6 FL (78-98); MEAN PLATELET VOLUME 7.7 FL (7.4-10.4); MONOCYTES # (AUTO) 0.4 X10'3 (0-0.9); MONOCYTES % (AUTO) 4.7 % (2-12); NEUTROPHILS # (AUTO) 4.6 X10'3 (1.8-7.7); NEUTROPHILS % (AUTO) 49.4 % (42-75); PLATELET COUNT 319 X10'3 (140-440); RED BLOOD COUNT 3.97 X10'6 (4.20-5.60); RED CELL DISTRIBUTION WIDTH 16.9 % (11.5-14.5); WHITE BLOOD COUNT 9.3 X10'3 (4.5-11.0)
[2019-07-01] MEDS: tizanidine 4mg tablet PO SCH ×3 (05:42→20:30)
[2019-07-01 06:02] LABS: ALBUMIN 2.7 G/DL (3.4-5.0); ANION GAP 7 (8-16); BLOOD UREA NITROGEN 8 MG/DL (7-18); CALCIUM 8.8 MG/DL (8.5-10.1); CHLORIDE 110 MMOL/L (99-107); GLUCOSE 97 MG/DL (70-104); POTASSIUM 3.8 MMOL/L (3.5-5.1); SODIUM 146 MMOL/L (135-145); TOTAL CARBON DIOXIDE 28.7 MMOL/L (24-32); eGFR 59 ML/MIN
--- NOTE | 2019-07-01 06:32 | NUR ---
Problems reprioritized. Patient report given, questions answered & plan of care reviewed with KERRI Tinoco.
--- NOTE | 2019-07-01 06:38 | NUR ---
Patient in room YADIEL 353. I have received report from KERRI Alfaro and had the opportunity to ask questions and assume patient care.
[2019-07-01 07:30] VITALS: BP 122/85
[2019-07-01] MEDS: fluconazole 100mg tablet PO SCH (07:56)
[2019-07-01] MEDS: pantoprazole 40mg Tablet.DR PO SCH (07:56)
[2019-07-01] MEDS: citalopram 20mg tablet PO SCH ×2 (07:56→20:32)
[2019-07-01] MEDS: metoprolol tartrate 50mg tablet PO SCH ×2 (07:57→20:31)
[2019-07-01] MEDS: levoTHYROXINE 25mcg tablet PO SCH (07:58)
[2019-07-01] MEDS: topiramate 100mg tablet PO SCH ×2 (07:58→20:30)
[2019-07-01] MEDS: predniSONE 20 mg tablet PO SCH (07:58)
[2019-07-01] MEDS: multivitamins, therapeutics tablet PO SCH (07:58)
[2019-07-01] MEDS: nystatin 500,000 unit/5ML UD oral suspension PO SCH ×3 (07:59→20:29)
[2019-07-01] MEDS: heparin, porcine 5000 units/ml vial SQ SCH ×2 (07:59→20:32)
[2019-07-01 12:16] VITALS: BP 107/62
--- NOTE | 2019-07-01 13:52 | NUR ---
Reassessment: Patient's diet was advanced to mechanical soft chop all, then grind all. Pt with fluctuating PO intake documented with 100% at dinner 06/29 and for breakfast 06/30 however back down to 25% for lunch and dinner 06/30. RD ordered BSS which was then performed this morning, ST has recommended pureed food with nectar thick liquids d/t coughing with thin liquids and effortful swallow with solids. D/w RN to d/c mechanical soft diet order. LBM 06/27, pt with PRN Colace and MoM however not yet given, d/w RN who states she will give pt bowel care. Will continue to follow closely. Rec: 1. continue pureed food with NTL per recs; finely chopped meats once solid foods w/ straws for liquids per prior barium note. 2. monitor for ONS needs 3. Continue PPI per MD approval given GERD and high soda intake non-compliance hx 4. routine bowel care 5. may benefit from new barium swallow eval per MD approval 6. wt per rx Addendum: 07/01/19 at [address] Amended: Links added.
--- NOTE | 2019-07-01 17:29 | NUR ---
I have reviewed the assessment, intervention, and documentation performed by Bobby Hair [facility] SN
[2019-07-01 18:00] VITALS: BP 102/76
--- NOTE | 2019-07-01 18:22 | NUR ---
Problems reprioritized. Patient report given, questions answered & plan of care reviewed with KERRI Alfaro.
--- NOTE | 2019-07-01 18:25 | NUR ---
Patient in room YADIEL 353. I have received report from KERRI Tinoco and had the opportunity to ask questions and assume patient care. Addendum: 07/01/19 at 1825 by Ghazala Rutherford RN Amended: Links added.
[2019-07-01] MEDS: ipratropium/albuterol 3ml nebule NEB PRN (20:13)
[2019-07-01] MEDS: guanFACINE 1 mg tablet PO SCH (20:30)
[2019-07-01] MEDS: OLANZAPINE 5 MG TABLET PO SCH (20:30)
[2019-07-01] MEDS: olanzapine 10mg tablet PO SCH (20:32)
[2019-07-01] MEDS: SIMVASTATIN 20 MG PO SCH (21:00)
[2019-07-02 00:25] VITALS: BP 108/74
[2019-07-02] MEDS: HYDROcodone/acetaminophen 5mg/325mg tablet PO SCH ×4 (04:00→13:03)
[2019-07-02 05:19] LABS: BASOPHILS # (AUTO) 0.1 X10'3 (0-0.2); EOSINOPHILS # (AUTO) 0.2 X10'3 (0-0.9); EOSINOPHILS % (AUTO) 1.8 % (0-6); HEMATOCRIT 35.3 % (35.0-45.0); HEMOGLOBIN 11.4 g/dl (12.0-16.0); LYMPHOCYTES # (AUTO) 3.9 X10'3 (1.1-4.8); LYMPHOCYTES % (AUTO) 39.6 % (21-51); MEAN CORPUSCULAR HEMOGLOBIN 28.6 PG (27.0-31.0); MEAN CORPUSCULAR HGB CONC 32.2 g/dL (33.0-36.5); MEAN CORPUSCULAR VOLUME 88.9 FL (78-98); MEAN PLATELET VOLUME 7.7 FL (7.4-10.4); MONOCYTES # (AUTO) 0.5 X10'3 (0-0.9); MONOCYTES % (AUTO) 4.7 % (2-12); NEUTROPHILS # (AUTO) 5.2 X10'3 (1.8-7.7); NEUTROPHILS % (AUTO) 52.9 % (42-75); PLATELET COUNT 338 X10'3 (140-440); RED BLOOD COUNT 3.97 X10'6 (4.20-5.60); RED CELL DISTRIBUTION WIDTH 16.8 % (11.5-14.5); WHITE BLOOD COUNT 9.9 X10'3 (4.5-11.0)
[2019-07-02 05:48] LABS: ALBUMIN 2.8 G/DL (3.4-5.0); ANION GAP 8 (8-16); BLOOD UREA NITROGEN 8 MG/DL (7-18); BUN/CREATININE RATIO 8.1 (6.6-38.0); CALCIUM 9.3 MG/DL (8.5-10.1); CHLORIDE 109 MMOL/L (99-107); CREATININE 0.99 MG/DL (0.40-0.90); GLUCOSE 86 MG/DL (70-104); MAGNESIUM 2.1 MG/DL (1.5-2.4); POTASSIUM 3.6 MMOL/L (3.5-5.1); SODIUM 145 MMOL/L (135-145); TOTAL CARBON DIOXIDE 28.2 MMOL/L (24-32); eGFR 59 ML/MIN
--- NOTE | 2019-07-02 06:50 | NUR ---
Patient in room YADIEL 353. I have received report from Angelina Powers RN and had the opportunity to ask questions and assume patient care.
--- NOTE | 2019-07-02 07:06 | NUR ---
Problems reprioritized. Patient report given, questions answered & plan of care reviewed with KERRI Lorenz.
[2019-07-02 07:23] VITALS: BP 117/84
[2019-07-02] MEDS: tizanidine 4mg tablet PO SCH ×2 (07:40→14:36)
[2019-07-02] MEDS: K and/or MAG REPLACEMENT MC SCH (08:00)
[2019-07-02] MEDS: nystatin 500,000 unit/5ML UD oral suspension PO SCH ×2 (09:45→13:00)
[2019-07-02] MEDS: heparin, porcine 5000 units/ml vial SQ SCH (09:46)
[2019-07-02] MEDS: metoprolol tartrate 50mg tablet PO SCH (09:47)
[2019-07-02] MEDS: pantoprazole 40mg Tablet.DR PO SCH (09:47)
[2019-07-02] MEDS: multivitamins, therapeutics tablet PO SCH (09:47)
[2019-07-02] MEDS: citalopram 20mg tablet PO SCH (09:47)
[2019-07-02] MEDS: fluconazole 100mg tablet PO SCH (09:47)
[2019-07-02] MEDS: predniSONE 20 mg tablet PO SCH (09:47)
[2019-07-02] MEDS: topiramate 100mg tablet PO SCH (09:48)
[2019-07-02] MEDS: levoTHYROXINE 25mcg tablet PO SCH (09:48)
[2019-07-02 11:45] VITALS: BP 90/60
[2019-07-02 11:46] VITALS: BP 97/63
[2019-07-02] MEDS ORDERED: IPRA3AMP9 NEB (11:57)
[2019-07-02] MEDS ORDERED: FLUC100T9 PO (11:57)
--- NOTE | 2019-07-02 14:50 | NUR ---
Patient discharged. Extended PIV removed by KERRI Travis: cath tip intact. Education given to patient and caregiver and they both verbalized understanding and had the opportunity to ask questions. Patient encouraged to maintain a pureed/nectar thick diet at all times to avoid aspiration. Patient was escorted down by staff in her wheelchair.
== END 2019-07-02 14:54 | disposition home or self-care (01) | DRG 254 ==
LOC: ER 19:19 → SUR 3N 21:17 → OBSVTOIN 21:17 → SUR 3N 21:53 → OBSVTOIN 21:53 → UNDOADMOB 21:53 → INTOOBSV 21:53 → SUR 3N 06-28 05:07 → INTOOBSV 06-28 05:07 → OBSVTOIN 06-28 05:07 → UNDOADMOB 06-28 05:07 → SUR 3N 06-28 10:23
PROVIDERS: ADMIT Hospitalist; ATTEND Family Medicine
PROC: 0DB58ZX Excision of Esophagus, Via Natural or Artificial Opening Endoscopic, Diagnostic (ICD-10-PCS; principal; 2019-06-28)
PROC: 5A09357 Assistance with Respiratory Ventilation, Less than 24 Consecutive Hours, Continuous Positive Airway Pressure (ICD-10-PCS; 2019-07-02)
DX: T18.128A Food in esophagus causing other injury, initial encounter (principal); J96.21 Acute and chronic respiratory failure with hypoxia; J69.0 Pneumonitis due to inhalation of food and vomit; B37.81 Candidal esophagitis; E87.1 Hypo-osmolality and hyponatremia; Z93.1 Gastrostomy status; G80.9 Cerebral palsy, unspecified; N18.3 Chronic kidney disease, stage 3 (moderate); G40.89 Other seizures; D64.9 Anemia, unspecified; E03.9 Hypothyroidism, unspecified; E87.6 Hypokalemia; K21.0 Gastro-esophageal reflux disease with esophagitis; F32.9 Major depressive disorder, single episode, unspecified; R00.0 Tachycardia, unspecified; X58.XXXA Exposure to other specified factors, initial encounter; G89.29 Other chronic pain; F41.9 Anxiety disorder, unspecified; G47.30 Sleep apnea, unspecified; I12.9 Hypertensive chronic kidney disease with stage 1 through stage 4 chronic kidney disease, or unspecified chronic kidney disease; Z82.49 Family history of ischemic heart disease and other diseases of the circulatory system; Y93.89 Activity, other specified; Y92.89 Other specified places as the place of occurrence of the external cause; Y99.8 Other external cause status; Z88.8 Allergy status to other drugs, medicaments and biological substances; Z88.5 Allergy status to narcotic agent; Z79.899 Other long term (current) drug therapy
CPT/HCPCS: 36415; 43239; 71045; 76937; 80048; 80053; 82948; 83735; 84484; 85025; 87081; 92508; 92616; 93005; 93308; 94640; 94667; 94760; 96361; 96374; 96375; 97161; 97530; 99152; 99285; A4620; G0378; J1610; J1644; J2060; J2250; J2405; J3010; J7030; J7040; J7512

== ENCOUNTER 2019-07-10 16:26 | Emergency (ER) | payer MEDICAID ==
[~2019-07-10] VITALS: Ht 149.9 cm; Wt 218.2 kg
[~2019-07-10 16:26] MED LIST changes: -ALBU6.7H9 INH; +FLUC100T9 PO; +IPRA3AMP9 NEB; -LEVO500T2 PO
[2019-07-10 16:49] VITALS: BP 113/79
[2019-07-10 18:38] LABS: BASOPHILS % (AUTO) 0.4 % (0-1); EOSINOPHILS # (AUTO) 0.2 X10'3 (0-0.9); EOSINOPHILS % (AUTO) 1.3 % (0-6); HEMATOCRIT 38.2 % (35.0-45.0); HEMOGLOBIN 12.4 g/dl (12.0-16.0); LYMPHOCYTES # (AUTO) 1.7 X10'3 (1.1-4.8); LYMPHOCYTES % (AUTO) 15.1 % (21-51); MEAN CORPUSCULAR HEMOGLOBIN 28.9 PG (27.0-31.0); MEAN CORPUSCULAR HGB CONC 32.5 g/dL (33.0-36.5); MEAN CORPUSCULAR VOLUME 89.1 FL (78-98); MEAN PLATELET VOLUME 7.6 FL (7.4-10.4); MONOCYTES # (AUTO) 0.5 X10'3 (0-0.9); MONOCYTES % (AUTO) 4.3 % (2-12); NEUTROPHILS # (AUTO) 8.9 X10'3 (1.8-7.7); NEUTROPHILS % (AUTO) 78.9 % (42-75); PLATELET COUNT 356 X10'3 (140-440); RED BLOOD COUNT 4.29 X10'6 (4.20-5.60); RED CELL DISTRIBUTION WIDTH 17.3 % (11.5-14.5); WHITE BLOOD COUNT 11.3 X10'3 (4.5-11.0)
[2019-07-10 19:01] LABS: ALANINE AMINOTRANSFERASE 60 U/L (12-78); ALBUMIN 3.2 G/DL (3.4-5.0); ALBUMIN/GLOBULIN RATIO 0.8 (1.1-1.5); ALKALINE PHOSPHATASE 136 IU/L (46-116); ANION GAP 10 (8-16); ASPARTATE AMINO TRANSFERASE 37 U/L (10-37); BILIRUBIN,TOTAL 0.2 MG/DL (0.1-1.0); BLOOD UREA NITROGEN 10 MG/DL (7-18); BUN/CREATININE RATIO 9.7 (6.6-38.0); CALCIUM 9.1 MG/DL (8.5-10.1); CHLORIDE 110 MMOL/L (99-107); CREATININE 1.03 MG/DL (0.40-0.90); GLUCOSE 156 MG/DL (70-104); POTASSIUM 3.6 MMOL/L (3.5-5.1); SODIUM 145 MMOL/L (135-145); TOTAL CARBON DIOXIDE 25.4 MMOL/L (24-32); TOTAL PROTEIN 7.4 G/DL (6.4-8.2); eGFR 57 ML/MIN
[2019-07-10] MEDS ORDERED: AZIT250T83 PO (20:00)
[2019-07-10] MEDS ORDERED: ROBDML PO (20:00)
[2019-07-10] MEDS ORDERED: BENZ-16 PO (20:00)
[2019-07-10] MEDS ORDERED: NYST1000 PO (20:34)
== END 2019-07-10 20:57 | disposition home or self-care (01) ==
LOC: ER 16:27
DX: R05 Cough (principal); R09.89 Other specified symptoms and signs involving the circulatory and respiratory systems; R06.02 Shortness of breath; I10 Essential (primary) hypertension; J45.909 Unspecified asthma, uncomplicated; K21.9 Gastro-esophageal reflux disease without esophagitis; G89.29 Other chronic pain; F41.9 Anxiety disorder, unspecified; F32.9 Major depressive disorder, single episode, unspecified; G80.9 Cerebral palsy, unspecified; Z86.69 Personal history of other diseases of the nervous system and sense organs; Z86.14 Personal history of Methicillin resistant Staphylococcus aureus infection; Z98.890 Other specified postprocedural states; Z88.5 Allergy status to narcotic agent; Z88.0 Allergy status to penicillin; Z88.8 Allergy status to other drugs, medicaments and biological substances; Z79.899 Other long term (current) drug therapy; Z99.3 Dependence on wheelchair
CPT/HCPCS: 36415; 71045; 80053; 83605; 84145; 85025; 87502; 87503; 99284

== ENCOUNTER 2019-07-17 15:17 | Emergency (ER) | payer MEDICAID ==
[~2019-07-17] VITALS: Ht 149.9 cm; Wt 81.8 kg
[~2019-07-17 15:17] MED LIST changes: +BENZ-16 PO; +NYST1000 PO; +ROBDML PO; +SIMV-42 PO; -SIMV20TA5 PO
[2019-07-17] MEDS ORDERED: albuterol 2.5 MG/3 ML nebule NEB ONE (15:45)
[2019-07-17] MEDS ORDERED: AZIT250T2 PO (16:05)
[2019-07-17 16:19] VITALS: BP 115/66
== END 2019-07-17 16:21 | disposition home or self-care (01) ==
LOC: ER 15:18
DX: J20.9 Acute bronchitis, unspecified (principal); E78.00 Pure hypercholesterolemia, unspecified; I11.0 Hypertensive heart disease with heart failure; I50.9 Heart failure, unspecified; J45.909 Unspecified asthma, uncomplicated; E05.90 Thyrotoxicosis, unspecified without thyrotoxic crisis or storm; G89.29 Other chronic pain; F41.9 Anxiety disorder, unspecified; F32.9 Major depressive disorder, single episode, unspecified; Z86.14 Personal history of Methicillin resistant Staphylococcus aureus infection; Z98.890 Other specified postprocedural states
CPT/HCPCS: 71045; 94640; 94760; 99284

== ENCOUNTER 2019-08-17 19:34 | Inpatient (IN) | payer MEDICAID ==
[~2019-08-17] VITALS: Ht 149.9 cm; Wt 81.8 kg
[~2019-08-17 19:34] MED LIST changes: -BENZ-16 PO; -NYST1000 PO; -ROBDML PO; -SIMV-42 PO; +SIMV20TA5 PO; +acetaminophen 1,000mg/100ml IV 100 ML IV ONE
[2019-08-17] MEDS ORDERED: acetaminophen 325mg tablet PO STA (19:57)
[2019-08-17] MEDS ORDERED: normal saline 1000ML IV soln IV ONE (20:00)
[2019-08-17] MEDS ORDERED: CefTRIAXone 2gm/D5W 50ml 50 ML IV STA (20:06)
[2019-08-17] MEDS ORDERED: ondansetron/PF 4mg/2ml inj IV ONE (20:10)
[2019-08-17] MEDS ORDERED: morphine 4 MG/ML inj SYRINge IV ONE ×2 (20:10→22:10)
[2019-08-17] MEDS ORDERED: LORazepam 2 mg/ml vial ONE (20:38)
[2019-08-17 20:45] LABS: ABG BASE EXCESS -3.8 mmol/L (-2.0-3.0); ABG HCO3 21.8 mmol/L (22.0-26.0); ABG OXYGEN SATURATION 99.2 % (95-98); ABG PCO2 (T) 45.6 mmHg (35.0-45.0); ABG PH (T) 7.307 (7.350-7.450); ABG PO2 (T) 271.7 mmHg (83-108); FCOHb 0.5 % (0.5-1.5); FMetHb 1.2 % (0.3-1.12); FO2Hb 97.5 % (94-100); RESPIRATORY RATE (OBSERVED) 40 b/min; TOTAL HEMOGLOBIN 13.2 G/dl (12.0-16.0)
[2019-08-17] MEDS ORDERED: LORazepam 2 mg/ml vial IV ONE ×2 (20:45→21:20)
[2019-08-17 20:51] LABS: BASOPHILS % (AUTO) 0.1 % (0-1); EOSINOPHILS # (AUTO) 0.2 X10'3 (0-0.9); EOSINOPHILS % (AUTO) 1.1 % (0-6); HEMATOCRIT 38.8 % (35.0-45.0); HEMOGLOBIN 12.4 g/dl (12.0-16.0); LYMPHOCYTES % (AUTO) 17.8 % (21-51); MEAN CORPUSCULAR HEMOGLOBIN 28.9 PG (27.0-31.0); MEAN CORPUSCULAR VOLUME 90.4 FL (78-98); MEAN PLATELET VOLUME 7.7 FL (7.4-10.4); MONOCYTES # (AUTO) 1.1 X10'3 (0-0.9); MONOCYTES % (AUTO) 4.9 % (2-12); NEUTROPHILS % (AUTO) 76.1 % (42-75); PLATELET COUNT 418 X10'3 (140-440); RED BLOOD COUNT 4.29 X10'6 (4.20-5.60); RED CELL DISTRIBUTION WIDTH 16.6 % (11.5-14.5); WHITE BLOOD COUNT 22.3 X10'3 (4.5-11.0)
[2019-08-17 20:57] LABS: ALANINE AMINOTRANSFERASE 63 U/L (12-78); ALBUMIN 3.5 G/DL (3.4-5.0); ALBUMIN/GLOBULIN RATIO 0.8 (1.1-1.5); ALKALINE PHOSPHATASE 194 IU/L (46-116); ANION GAP 11 (8-16); ASPARTATE AMINO TRANSFERASE 62 U/L (10-37); BILIRUBIN,TOTAL 0.4 MG/DL (0.1-1.0); BLOOD UREA NITROGEN 10 MG/DL (7-18); CALCIUM 9.4 MG/DL (8.5-10.1); CHLORIDE 108 MMOL/L (99-107); GLUCOSE 93 MG/DL (70-104); MAGNESIUM 1.8 MG/DL (1.5-2.4); SODIUM 145 MMOL/L (135-145); TOTAL CARBON DIOXIDE 25.6 MMOL/L (24-32); TOTAL PROTEIN 8.1 G/DL (6.4-8.2); eGFR 59 ML/MIN
[2019-08-17 21:02] LABS: PARTIAL THROMBOPLASTIN TIME 25 SECONDS (22-32)
--- NOTE | 2019-08-17 21:15 | NUR ---
PT TOLERATING BIPAP WELL. HER IV FLUID BOLUS IS INFUSING ALONG WITH TYLENOL AND ABX.
[2019-08-17 21:19] LABS: CLARITY,URINE CLEAR (Clear); GLUCOSE, URINE 250 mg/dl (Neg); LEUKOCYTE ESTERASE ,URINE SMALL (Neg); OCCULT BLOOD,URINE NEGATIVE (Neg)
[2019-08-17 21:20] LABS: UA COLLECTION TYPE FOLEY CATH
[2019-08-17 21:21] LABS: COLOR,URINE ORANGE (Yellow)
[2019-08-17 21:38] LABS: BACTERIA,URINE FEW /HPF (Neg); RBC,URINE NONE SEEN /HPF (0-2)
[2019-08-17 21:39] LABS: SQUAMOUS EPITHELIAL CELL,UR FEW /LPF (FEW)
[2019-08-17] MEDS ORDERED: normal saline 1000ML IV soln IVB ONE (21:45)
[2019-08-17] MEDS ORDERED: iohexol 300mg/ml 100ml inj. ONE (22:11)
[2019-08-17] MEDS ORDERED: magnesium hydroxide 30ml (MOM) UD suspension PO PRN (23:55)
[2019-08-17] MEDS ORDERED: mag hydrox/Alum hydrox/simeth 30ml oral suspension PO PRN (23:55)
[2019-08-17] MEDS ORDERED: HYDROcodone/acetaminophen 5mg/325mg tablet PO PRN (23:55)
[2019-08-17] MEDS ORDERED: morphine 2 MG/ML inj. syringe IV PRN (23:55)
[2019-08-18] MEDS: normal saline 1000ml 1,000 ML IV SCH ×3 (00:37→19:00)
[2019-08-18] MEDS ORDERED: vancomycin/NS 1 GM ADD-VANTAGE 250 ML IV SCH (01:00)
[2019-08-18] MEDS ORDERED: acetaminophen 1,000mg/100ml IV 100 ML IV SCH (02:00)
[2019-08-18] MEDS ORDERED: LORazepam 2 mg/ml vial IV ONE (02:30)
--- NOTE | 2019-08-18 02:32 | NUR ---
Patient began having tonic clonic seizure while in ED 3. While primary RN was attending to the patient, I contacted Dr. Mejia who requests we give 1mg Ativan IV now x1 and 1000mg keppra IV now x1. Orders placed.
--- NOTE | 2019-08-18 03:11 | NUR ---
HUSSEIN TIMED FOR 0800 ADMINISTERED AT THIS TIME PER DR ANDREWS.
[2019-08-18 03:30] VITALS: BP 154/112
--- NOTE | 2019-08-18 04:09 | NUR ---
Patient in room PCU 3022. I have received report from KERRI Nolan in ER and had the opportunity to ask questions and assume patient care. Patient arrived to floor via gurney. Patient on BiPAP 40% FiO2 at 97%. Blood pressure and HR elevated. Patient observed to have tremors which were reported as baseline. Caregiver at bedside.
[2019-08-18] MEDS ORDERED: metoprolol tartrate 1mg/ml inj IV ONE (04:20)
[2019-08-18 04:41] LABS: BASOPHILS % (AUTO) 0.2 % (0-1); EOSINOPHILS # (AUTO) 0.4 X10'3 (0-0.9); EOSINOPHILS % (AUTO) 2.4 % (0-6); HEMATOCRIT 37.8 % (35.0-45.0); LYMPHOCYTES # (AUTO) 3.9 X10'3 (1.1-4.8); LYMPHOCYTES % (AUTO) 21.8 % (21-51); MEAN CORPUSCULAR HEMOGLOBIN 29.2 PG (27.0-31.0); MEAN CORPUSCULAR HGB CONC 31.7 g/dL (33.0-36.5); MEAN CORPUSCULAR VOLUME 92.2 FL (78-98); MONOCYTES % (AUTO) 5.4 % (2-12); NEUTROPHILS # (AUTO) 12.6 X10'3 (1.8-7.7); NEUTROPHILS % (AUTO) 70.2 % (42-75); PLATELET COUNT 367 X10'3 (140-440); RED CELL DISTRIBUTION WIDTH 16.7 % (11.5-14.5); WHITE BLOOD COUNT 17.9 X10'3 (4.5-11.0)
[2019-08-18 04:44] LABS: ANION GAP 11 (8-16); BLOOD UREA NITROGEN 7 MG/DL (7-18); BUN/CREATININE RATIO 7.2 (6.6-38.0); CALCIUM 8.5 MG/DL (8.5-10.1); CHLORIDE 111 MMOL/L (99-107); CREATININE 0.97 MG/DL (0.40-0.90); GLUCOSE 104 MG/DL (70-104); POTASSIUM 3.9 MMOL/L (3.5-5.1); SODIUM 146 MMOL/L (135-145); TOTAL CARBON DIOXIDE 24.5 MMOL/L (24-32); eGFR 61 ML/MIN
[2019-08-18 05:05] LABS: ABG BASE EXCESS -5.9 mmol/L (-2.0-3.0); ABG HCO3 21.3 mmol/L (22.0-26.0); ABG OXYGEN SATURATION 95.3 % (95-98); ABG PCO2 (T) 48.9 mmHg (35.0-45.0); ABG PH (T) 7.257 (7.350-7.450); ABG PO2 (T) 77.8 mmHg (83-108); ALLEN'S TEST Positive; FCOHb 0.1 % (0.5-1.5); FMetHb 0.2 % (0.3-1.12); MINUTE VOLUME 16 L/min; RESPIRATORY RATE 18 b/min; RESPIRATORY RATE (OBSERVED) 27 b/min; TOTAL HEMOGLOBIN 11.9 G/dl (12.0-16.0)
--- NOTE | 2019-08-18 05:47 | NUR ---
Patient blood pressure elevated 200/[address] Mejia notified and new orders for one time dose of Lopressor IV 5mg once. Will continue to monitor closely.
[2019-08-18 06:00] VITALS: BP 123/76
[2019-08-18] MEDS ORDERED: levetiracetam-NS 1000mg/100ml 100 ML IV ONE (08:00)
[2019-08-18] MEDS: azithromycin/NS 500mg/250ml 250 ML IV SCH (08:08)
[2019-08-18] MEDS: enoxaparin 40mg/0.4ml syringe SUBCUT SCH (08:09)
[2019-08-18] MEDS: CefTRIAXone/D5W-Rocephin 1gm 50 ML IV SCH (08:09)
[2019-08-18 11:00] VITALS: BP 130/67
[2019-08-18] MEDS ORDERED: ESCI20TA38 PO (11:44)
[2019-08-18] MEDS ORDERED: LEVO50TA8 PO (11:44)
[2019-08-18] MEDS ORDERED: IPRA3AMP31 IH (11:45)
--- NOTE | 2019-08-18 12:41 | NUR ---
PAGER ID: [phone] MESSAGE: [phone] Ramy Collins Pt. is awake and c/o severe pain. States she does not feel drowsy/groggy at this time. HR is in the high 150s. Placed NPO as ordered. Pls. advise. Thanks! Magaly [facility] [id number]
--- NOTE | 2019-08-18 13:03 | NUR ---
Initial: Pt admit with sepsis and UTI. Pt with hx trach and PEG however neither present at this time. Pt previously on regular diet documented with 0% PO intake first meal, now NPO. Pt recently admitted in June seen by for BSS 07/01/19 with recs pureed food with nectar thick liquids d/t pt coughing with thin liquids and effortful swallow with solids. Pt would greatly benefit from BSS prior to diet advancement to ensure proper texture modification. Pt just admitted, pending physical assessment at this time. Per CM notes pt very SOB on BiPAP at this time. No documented LBM. Will continue to follow and make recommendations as appropriate. Recommendations: 1) BSS prior to diet advancement to ensure appropriate texture; recommend heart healthy diet 2) Monitor need for additional protein with diet advancement 3) Wt per rx Addendum: 08/18/19 at [address] Amended: Links added.
[2019-08-18] MEDS: acetaminophen 325mg tablet PO PRN ×2 (13:19→18:07)
[2019-08-18] MEDS ORDERED: docusate sod 100mg capsule PO PRN (13:20)
[2019-08-18] MEDS ORDERED: ondansetron 4mg rapidly disintigrating tab PO PRN (13:20)
[2019-08-18] MEDS ORDERED: HYDROcodone/acetaminophen 5mg/325mg tablet PO PRN (13:20)
[2019-08-18] MEDS ORDERED: nitroGLYCERIN 0.4mg SUBLingual tab SL PRN (13:20)
[2019-08-18] MEDS ORDERED: metoprolol tartrate 50mg tablet PO ONE (13:55)
[2019-08-18] MEDS ORDERED: topiramate 100mg tablet PO ONE (13:55)
[2019-08-18] MEDS: HYDROcodone/acetaminophen 10/325mg tab PO PRN (14:07)
[2019-08-18] MEDS: VANCOmycin 1250MG/NS 250ml Bag 250 ML IV SCH (14:09)
[2019-08-18] MEDS: morphine 2 MG/ML inj. syringe IV PRN ×3 (14:23→23:27)
[2019-08-18 15:00] VITALS: BP 108/65
--- NOTE | 2019-08-18 15:17 | NUR ---
[place] 10s was not administered to patient. It was scanned, and accidentally saved. [place] was returned to [facility] d/t patient reaching maximum 24hr dose of 4000mg of acetaminophen and was given morphine 2mg instead. A manual undo was done to the [place] in the -DEC.
[2019-08-18] MEDS: tizanidine 4mg tablet PO SCH ×2 (16:41→21:58)
[2019-08-18 18:30] VITALS: BP 127/100
--- NOTE | 2019-08-18 18:49 | NUR ---
Patient in room PCU 3022. I have received report from Magaly MANNING and had the opportunity to ask questions and assume patient care.
--- NOTE | 2019-08-18 19:07 | NUR ---
Problems reprioritized. Patient report given, questions answered & plan of care reviewed with Brandon MANNING.
[2019-08-18] MEDS: SIMVASTATIN 20MG TAB PO SCH (21:00)
[2019-08-18] MEDS ORDERED: OLANZAPINE 5 MG TABLET PO SCH (21:00)
[2019-08-18] MEDS: metoprolol tartrate 50mg tablet PO SCH (21:54)
[2019-08-18] MEDS: lactobacillus rhamnosus 10,000 MMU CELLS/CAPSULE PO SCH (21:57)
[2019-08-18] MEDS: olanzapine 10mg tablet PO SCH (21:57)
[2019-08-18] MEDS: topiramate 100mg tablet PO SCH (22:01)
[2019-08-18] MEDS: ondansetron/PF 4mg/2ml inj IV PRN (22:11)
[2019-08-18 22:30] VITALS: BP 129/84
[2019-08-19] MEDS: morphine 2 MG/ML inj. syringe IV PRN ×2 (00:46→17:26)
[2019-08-19] MEDS: VANCOmycin 1250MG/NS 250ml Bag 250 ML IV SCH ×2 (00:53→13:30)
[2019-08-19] MEDS: HYDROcodone/acetaminophen 10/325mg tab PO PRN ×2 (01:56→15:24)
--- NOTE | 2019-08-19 02:00 | NUR ---
PT C/O 06/29 pain with HR in 130s, +tremors - administered Alpine 10mg and brought warm blankets per pt request. Will continue to Monitor Heart rate as patient appears to be calming down with reduced tremors to see if elevation sustains.
[2019-08-19 02:30] VITALS: BP 145/93
[2019-08-19] MEDS: normal saline 1000ml 1,000 ML IV SCH ×2 (04:22→15:53)
[2019-08-19] MEDS: acetaminophen 325mg tablet PO PRN (05:07)
[2019-08-19 05:29] LABS: BASOPHILS # (AUTO) 0.1 X10'3 (0-0.2); BASOPHILS % (AUTO) 0.5 % (0-1); EOSINOPHILS # (AUTO) 0.4 X10'3 (0-0.9); EOSINOPHILS % (AUTO) 3.8 % (0-6); HEMATOCRIT 31.5 % (35.0-45.0); HEMOGLOBIN 10.3 g/dl (12.0-16.0); LYMPHOCYTES % (AUTO) 17.8 % (21-51); MEAN CORPUSCULAR HEMOGLOBIN 29.6 PG (27.0-31.0); MEAN CORPUSCULAR HGB CONC 32.7 g/dL (33.0-36.5); MEAN CORPUSCULAR VOLUME 90.4 FL (78-98); MEAN PLATELET VOLUME 8.2 FL (7.4-10.4); MONOCYTES # (AUTO) 0.8 X10'3 (0-0.9); MONOCYTES % (AUTO) 7.4 % (2-12); NEUTROPHILS # (AUTO) 7.8 X10'3 (1.8-7.7); NEUTROPHILS % (AUTO) 70.5 % (42-75); PLATELET COUNT 295 X10'3 (140-440); RED BLOOD COUNT 3.49 X10'6 (4.20-5.60); RED CELL DISTRIBUTION WIDTH 16.4 % (11.5-14.5); WHITE BLOOD COUNT 11.1 X10'3 (4.5-11.0)
[2019-08-19 05:46] LABS: ALBUMIN 2.5 G/DL (3.4-5.0); ANION GAP 9 (8-16); BLOOD UREA NITROGEN 4 MG/DL (7-18); BUN/CREATININE RATIO 4.1 (6.6-38.0); CALCIUM 8.6 MG/DL (8.5-10.1); CHLORIDE 112 MMOL/L (99-107); CREATININE 0.97 MG/DL (0.40-0.90); GLUCOSE 135 MG/DL (70-104); POTASSIUM 3.6 MMOL/L (3.5-5.1); SODIUM 146 MMOL/L (135-145); TOTAL CARBON DIOXIDE 24.9 MMOL/L (24-32); eGFR 61 ML/MIN
[2019-08-19 06:00] VITALS: BP 102/71
--- NOTE | 2019-08-19 06:00 | NUR ---
Patient in room PCU 3022. I have received report from Brandon MANNING and had the opportunity to ask questions and assume patient care.
--- NOTE | 2019-08-19 06:27 | NUR ---
Problems reprioritized. Patient report given, questions answered & plan of care reviewed with Óscar MANNING.
[2019-08-19] MEDS: CefTRIAXone/D5W-Rocephin 1gm 50 ML IV SCH (08:18)
[2019-08-19] MEDS: enoxaparin 40mg/0.4ml syringe SUBCUT SCH (08:21)
[2019-08-19] MEDS: azithromycin/NS 500mg/250ml 250 ML IV SCH (09:23)
[2019-08-19] MEDS: topiramate 100mg tablet PO SCH ×2 (10:03→19:04)
[2019-08-19] MEDS: lactobacillus rhamnosus 10,000 MMU CELLS/CAPSULE PO SCH ×2 (10:03→19:02)
[2019-08-19] MEDS: multivitamins, therapeutics tablet PO SCH (10:03)
[2019-08-19] MEDS: levoTHYROXINE 25mcg tablet PO SCH (10:04)
[2019-08-19] MEDS: metoprolol tartrate 50mg tablet PO SCH ×2 (10:04→19:03)
[2019-08-19] MEDS: tizanidine 4mg tablet PO SCH ×4 (10:04→20:36)
[2019-08-19] MEDS: ESCITALOPRAM OXALATE 5 MG TABLET PO SCH (10:05)
[2019-08-19 11:00] VITALS: BP 110/77
[2019-08-19] MEDS: ondansetron/PF 4mg/2ml inj IV PRN (14:33)
[2019-08-19 15:00] VITALS: BP 140/77
--- NOTE | 2019-08-19 15:50 | NUR ---
Notified by [facility] Reuben that patient is currently seizing. Bed rails padded per seizure precautions. Assessed pt at this time, no longer actively seizing, able to nod yes or no responses to questions. Pt desatting to low 80s, non-rebreather placed until patient O2 saturation high 90's, mask removed and NC reapplied, pt saturation maintaining high 90's. Pt c/o nausea, nausea meds recently given. Student at bedside with emesis bag, suction setup at bedside. Pt repositioned by staff. Notified primary RN of pt seizure episode, MD already aware of situation. Will continue to monitor patient.
--- NOTE | 2019-08-19 16:48 | NUR ---
Malnutrition consult: Pt s/p SP BSS recs advanced to pureed/NTL/heart healthy diet per MD/SP. Pt PO 0-25% first 2 days so far. Pt has severe weakness noted but no significant wt loss hx present. At this time pt fails to meet minimum 2 malnutrition criteria. Will monitor for ONS needs if PO continues to remains poor this admit. Addendum: 08/19/19 at [address] Amended: Links added.
[2019-08-19 18:00] VITALS: BP 121/73
--- NOTE | 2019-08-19 18:00 | NUR ---
Patient in room PCU 3022. I have received report from Óscar MANNING and had the opportunity to ask questions and assume patient care.
--- NOTE | 2019-08-19 18:00 | NUR ---
Problems reprioritized. Patient report given, questions answered & plan of care reviewed with Harini MANNING.
[2019-08-19] MEDS ORDERED: Potassium Cl inj 20 MEQ in dextrose 5%-water 990 ML IV SCH (18:30)
[2019-08-19] MEDS: olanzapine 10mg tablet PO SCH (20:36)
[2019-08-19] MEDS: SIMVASTATIN 20MG TAB PO SCH (20:37)
[2019-08-19 22:00] VITALS: BP 94/57
[2019-08-19] MEDS: Potassium Cl inj 20 MEQ in dextrose 5%-water 1,000 ML IV SCH (23:06)
[2019-08-20] VITALS (7 sets, daily range): BP systolic 92–116; BP diastolic 49–67
[2019-08-20] MEDS ORDERED: VANCOMYCIN LEVEL IV ONE (00:30)
[2019-08-20 00:43] LABS: BASOPHILS % (AUTO) 0.4 % (0-1); EOSINOPHILS # (AUTO) 0.4 X10'3 (0-0.9); EOSINOPHILS % (AUTO) 5.1 % (0-6); HEMOGLOBIN 9.9 g/dl (12.0-16.0); LYMPHOCYTES # (AUTO) 1.9 X10'3 (1.1-4.8); LYMPHOCYTES % (AUTO) 23.3 % (21-51); MEAN CORPUSCULAR HEMOGLOBIN 29.8 PG (27.0-31.0); MEAN CORPUSCULAR VOLUME 90.3 FL (78-98); MEAN PLATELET VOLUME 7.4 FL (7.4-10.4); MONOCYTES # (AUTO) 0.5 X10'3 (0-0.9); NEUTROPHILS # (AUTO) 5.5 X10'3 (1.8-7.7); NEUTROPHILS % (AUTO) 65.2 % (42-75); PLATELET COUNT 263 X10'3 (140-440); RED BLOOD COUNT 3.32 X10'6 (4.20-5.60); RED CELL DISTRIBUTION WIDTH 16.6 % (11.5-14.5); WHITE BLOOD COUNT 8.4 X10'3 (4.5-11.0)
[2019-08-20 00:56] LABS: ALBUMIN 2.4 G/DL (3.4-5.0); ANION GAP 5 (8-16); BLOOD UREA NITROGEN 8 MG/DL (7-18); BUN/CREATININE RATIO 10.4 (6.6-38.0); CALCIUM 8.4 MG/DL (8.5-10.1); CHLORIDE 111 MMOL/L (99-107); CREATININE 0.77 MG/DL (0.40-0.90); GLUCOSE 139 MG/DL (70-104); POTASSIUM 3.6 MMOL/L (3.5-5.1); SODIUM 142 MMOL/L (135-145); TOTAL CARBON DIOXIDE 25.8 MMOL/L (24-32); eGFR 79 ML/MIN
--- NOTE | 2019-08-20 01:00 | NUR ---
Vancomycin Trough 21.3 Critical result for vancomycin trough, pharmacy called and ordered for the vancomycin that is due to be hung and for the 1300 vancomycin to be held. MD Mejia was notified of the critical result and the orders from pharmacy, no new orders were give, will continue to monitor.
[2019-08-20 01:02] LABS: VANCOMYCIN,TROUGH 21.3 UG/ML (6.0-14.0)
[2019-08-20] MEDS: VANCOmycin 1250MG/NS 250ml Bag 250 ML IV SCH (01:24)
--- NOTE | 2019-08-20 05:56 | NUR ---
END NOC NOTE Patient lethargic and sleepy all night. No pain medication given on my shift. Patient refused any repositioning tonight. No seizures on my shift. Will continue to monitor.
--- NOTE | 2019-08-20 06:00 | NUR ---
Patient in room PCU 3022. I have received report from Harini MANNING and had the opportunity to ask questions and assume patient care.
--- NOTE | 2019-08-20 06:23 | NUR ---
Problems reprioritized. Patient report given, questions answered & plan of care reviewed with Óscar MANNING.
[2019-08-20] MEDS: CefTRIAXone/D5W-Rocephin 1gm 50 ML IV SCH (08:11)
[2019-08-20] MEDS: topiramate 100mg tablet PO SCH ×2 (08:13→19:26)
[2019-08-20] MEDS: levoTHYROXINE 25mcg tablet PO SCH (08:13)
[2019-08-20] MEDS: azithromycin 250mg tablet PO SCH (08:13)
[2019-08-20] MEDS: multivitamins, therapeutics tablet PO SCH (08:13)
[2019-08-20] MEDS: lactobacillus rhamnosus 10,000 MMU CELLS/CAPSULE PO SCH ×2 (08:13→19:27)
[2019-08-20] MEDS: tizanidine 4mg tablet PO SCH ×4 (08:14→20:07)
[2019-08-20] MEDS: enoxaparin 40mg/0.4ml syringe SUBCUT SCH (08:14)
[2019-08-20] MEDS: metoprolol tartrate 50mg tablet PO SCH ×2 (08:15→19:27)
[2019-08-20] MEDS: ESCITALOPRAM OXALATE 5 MG TABLET PO SCH (08:22)
[2019-08-20] MEDS: morphine 2 MG/ML inj. syringe IV PRN (08:22)
[2019-08-20] MEDS: Potassium Cl inj 20 MEQ in dextrose 5%-water 1,000 ML IV SCH (09:13)
[2019-08-20] MEDS ORDERED: furosemide 40mg/4ml inj IV ONE (09:25)
--- NOTE | 2019-08-20 09:40 | NUR ---
PAGER ID: [phone] MESSAGE: RE: Machelle Dominique. Room: 3022. Pt has had two seizures since you last saw Pt. Do you want IV Ativan ordered? -[facility] #[id number] Dr. Alexander paged concerning Pt's seizure activity.
[2019-08-20] MEDS: ondansetron/PF 4mg/2ml inj IV PRN (10:00)
[2019-08-20] MEDS: LORazepam 2 mg/ml vial IV PRN ×2 (10:00→10:10)
--- NOTE | 2019-08-20 10:15 | NUR ---
Pt had three consecutive seizures. Dr. Alexander notified, new ativan IV 1mg PRN [id number] for seizure order put in. 1mg of ativan administered. Pt continued to have seizures. Another 1 mg of ativan administered, Pt now sleeping. Vitals BP:141/69, O2: 96% 3L NC, RR: 25, HR: 95.
[2019-08-20] MEDS: vancomycin/NS 1 GM ADD-VANTAGE 250 ML IV SCH (15:06)
--- NOTE | 2019-08-20 18:00 | NUR ---
Patient in room PCU 3022. I have received report from Óscar MANNING and had the opportunity to ask questions and assume patient care.
--- NOTE | 2019-08-20 18:10 | NUR ---
Problems reprioritized. Patient report given, questions answered & plan of care reviewed with Harini MANNING.
[2019-08-20] MEDS: ipratropium/albuterol 3ml nebule IH PRN (19:19)
[2019-08-20] MEDS: furosemide 40mg/4ml inj IV SCH (19:26)
[2019-08-20] MEDS: olanzapine 10mg tablet PO SCH (20:07)
[2019-08-20] MEDS: SIMVASTATIN 20MG TAB PO SCH (21:00)
[2019-08-21] MEDS: vancomycin/NS 1 GM ADD-VANTAGE 250 ML IV SCH ×2 (01:16→13:33)
[2019-08-21 02:00] VITALS: BP 97/62
--- NOTE | 2019-08-21 05:30 | NUR ---
END NOC NOTE Patient has slept well tonight, was more responsive to voice and able to talk for longer period of times. No seizures tonight. Patient refused repositioning at times, she is able to shuffle in bed by herself. Will continue to monitor.
--- NOTE | 2019-08-21 05:55 | NUR ---
SEIZURE Patient had a seizure from 547 to 554, Ativan was given once and seizure stopped. Extremities rigid, patient stated she was having a seizure, full body tremors, HR 128 during the seizure.
[2019-08-21] MEDS: LORazepam 2 mg/ml vial IV PRN ×2 (05:56→07:13)
[2019-08-21 06:00] VITALS: BP 104/69
--- NOTE | 2019-08-21 06:10 | NUR ---
Patient in room PCU 3022. I have received report from Harini MANNING and had the opportunity to ask questions and assume patient care.
[2019-08-21 06:58] LABS: ALBUMIN 2.6 G/DL (3.4-5.0); ANION GAP 7 (8-16); BLOOD UREA NITROGEN 8 MG/DL (7-18); BUN/CREATININE RATIO 9.5 (6.6-38.0); CALCIUM 8.6 MG/DL (8.5-10.1); CHLORIDE 109 MMOL/L (99-107); CREATININE 0.84 MG/DL (0.40-0.90); GLUCOSE 102 MG/DL (70-104); SODIUM 148 MMOL/L (135-145); TOTAL CARBON DIOXIDE 31.7 MMOL/L (24-32); eGFR 72 ML/MIN
--- NOTE | 2019-08-21 07:00 | NUR ---
Pt had two seizures back to back, both lasting approx. 30 seconds.
[2019-08-21 07:04] LABS: POTASSIUM 2.9 MMOL/L (3.5-5.1)
[2019-08-21 07:12] LABS: BASOPHILS # (AUTO) 0.1 X10'3 (0-0.2); BASOPHILS % (AUTO) 0.8 % (0-1); EOSINOPHILS # (AUTO) 0.4 X10'3 (0-0.9); EOSINOPHILS % (AUTO) 5.4 % (0-6); HEMATOCRIT 33.2 % (35.0-45.0); LYMPHOCYTES # (AUTO) 1.7 X10'3 (1.1-4.8); LYMPHOCYTES % (AUTO) 23.5 % (21-51); MEAN CORPUSCULAR HEMOGLOBIN 29.5 PG (27.0-31.0); MEAN CORPUSCULAR VOLUME 89.4 FL (78-98); MEAN PLATELET VOLUME 7.8 FL (7.4-10.4); MONOCYTES # (AUTO) 0.5 X10'3 (0-0.9); MONOCYTES % (AUTO) 6.9 % (2-12); NEUTROPHILS # (AUTO) 4.6 X10'3 (1.8-7.7); NEUTROPHILS % (AUTO) 63.4 % (42-75); PLATELET COUNT 339 X10'3 (140-440); RED BLOOD COUNT 3.71 X10'6 (4.20-5.60); WHITE BLOOD COUNT 7.3 X10'3 (4.5-11.0)
--- NOTE | 2019-08-21 07:15 | NUR ---
1 mg of Ativan administered to Pt post seizure. Pt resting no longer in distress and now resting.
--- NOTE | 2019-08-21 07:23 | NUR ---
PAGER ID: [phone] MESSAGE: RE: Machelle Dominique, Room: 3022. Pt has critical morning potassium of 2.9. Pt has no replacement orders. Can I put replacement orders in? -[facility] #[id number] Dr. Paniagua paged concerning Pt's critical potassium of 2.9 and pt having no replacement orders.
[2019-08-21] MEDS: CefTRIAXone/D5W-Rocephin 1gm 50 ML IV SCH (07:48)
[2019-08-21] MEDS: azithromycin 250mg tablet PO SCH (07:48)
[2019-08-21] MEDS: topiramate 100mg tablet PO SCH ×2 (07:49→20:00)
[2019-08-21] MEDS: metoprolol tartrate 50mg tablet PO SCH ×2 (07:49→20:00)
[2019-08-21] MEDS: levoTHYROXINE 25mcg tablet PO SCH (07:49)
[2019-08-21] MEDS: multivitamins, therapeutics tablet PO SCH (07:49)
[2019-08-21] MEDS: ESCITALOPRAM OXALATE 5 MG TABLET PO SCH (07:49)
[2019-08-21] MEDS: lactobacillus rhamnosus 10,000 MMU CELLS/CAPSULE PO SCH ×2 (07:49→19:59)
[2019-08-21] MEDS: enoxaparin 40mg/0.4ml syringe SUBCUT SCH (07:50)
[2019-08-21] MEDS: furosemide 40mg/4ml inj IV SCH ×2 (07:50→09:45)
[2019-08-21] MEDS: tizanidine 4mg tablet PO SCH ×4 (07:51→20:00)
[2019-08-21] MEDS: morphine 2 MG/ML inj. syringe IV PRN (08:03)
[2019-08-21] MEDS ORDERED: potassium CL 10mEq/100ml bag 100 ML IV PRN (08:15)
[2019-08-21] MEDS ORDERED: potassium Cl 20 mEq SR tablet PO PRN (08:15)
[2019-08-21] MEDS: potassium Cl 20 mEq SR tablet PO PRN ×3 (08:40→17:32)
[2019-08-21] MEDS: HYDROcodone/acetaminophen 10/325mg tab PO PRN (09:30)
--- NOTE | 2019-08-21 10:31 | NUR ---
PAGER ID: [phone] MESSAGE: RE: Machelle Dominique. Room: 3022. Pt takes Keppra 250mg BID at home. Keppra was never ordered since admission. -[facility] #[id number] Dr. Paniagua paged concerning Pt's home medications. Pt takes Keppra 250mg BID.
[2019-08-21] MEDS ORDERED: levetiracetam 250mg tablet PO ONE (10:35)
[2019-08-21 11:00] VITALS: BP 131/89
[2019-08-21 15:00] VITALS: BP 97/63
[2019-08-21 18:00] VITALS: BP 105/60
--- NOTE | 2019-08-21 18:00 | NUR ---
Patient in room PCU 3022. I have received report from Óscar MANNING and had the opportunity to ask questions and assume patient care.
--- NOTE | 2019-08-21 18:10 | NUR ---
Problems reprioritized. Patient report given, questions answered & plan of care reviewed with Harini MANNING.
[2019-08-21] MEDS: levetiracetam 250mg tablet PO SCH (19:59)
[2019-08-21] MEDS: olanzapine 10mg tablet PO SCH (20:00)
[2019-08-21] MEDS: SIMVASTATIN 20MG TAB PO SCH (21:00)
[2019-08-21 22:00] VITALS: BP 104/52
[2019-08-22] MEDS ORDERED: VANCOMYCIN LEVEL IV ONE (00:30)
[2019-08-22 00:37] LABS: BASOPHILS # (AUTO) 0.1 X10'3 (0-0.2); BASOPHILS % (AUTO) 0.9 % (0-1); EOSINOPHILS # (AUTO) 0.4 X10'3 (0-0.9); EOSINOPHILS % (AUTO) 5.6 % (0-6); HEMOGLOBIN 10.9 g/dl (12.0-16.0); LYMPHOCYTES # (AUTO) 1.8 X10'3 (1.1-4.8); LYMPHOCYTES % (AUTO) 25.3 % (21-51); MEAN CORPUSCULAR HEMOGLOBIN 29.9 PG (27.0-31.0); MEAN CORPUSCULAR HGB CONC 33.1 g/dL (33.0-36.5); MEAN CORPUSCULAR VOLUME 90.4 FL (78-98); MEAN PLATELET VOLUME 7.6 FL (7.4-10.4); MONOCYTES # (AUTO) 0.6 X10'3 (0-0.9); MONOCYTES % (AUTO) 7.8 % (2-12); NEUTROPHILS # (AUTO) 4.3 X10'3 (1.8-7.7); NEUTROPHILS % (AUTO) 60.4 % (42-75); PLATELET COUNT 340 X10'3 (140-440); RED BLOOD COUNT 3.65 X10'6 (4.20-5.60); RED CELL DISTRIBUTION WIDTH 16.2 % (11.5-14.5); WHITE BLOOD COUNT 7.1 X10'3 (4.5-11.0)
--- NOTE | 2019-08-22 00:40 | NUR ---
[facility] called and was ordered to hold dose. MD Davis notified.
[2019-08-22 00:45] LABS: ALBUMIN 2.6 G/DL (3.4-5.0); ANION GAP 3 (8-16); BLOOD UREA NITROGEN 7 MG/DL (7-18); BUN/CREATININE RATIO 8.3 (6.6-38.0); CALCIUM 9.3 MG/DL (8.5-10.1); CHLORIDE 113 MMOL/L (99-107); CREATININE 0.84 MG/DL (0.40-0.90); GLUCOSE 106 MG/DL (70-104); POTASSIUM 3.9 MMOL/L (3.5-5.1); SODIUM 147 MMOL/L (135-145); TOTAL CARBON DIOXIDE 31.3 MMOL/L (24-32); eGFR 72 ML/MIN
[2019-08-22 00:52] LABS: VANCOMYCIN,TROUGH 28.7 UG/ML (6.0-14.0)
[2019-08-22 02:00] VITALS: BP 92/54
[2019-08-22] MEDS: morphine 2 MG/ML inj. syringe IV PRN (05:03)
[2019-08-22] MEDS: LORazepam 2 mg/ml vial IV PRN (05:39)
--- NOTE | 2019-08-22 05:48 | NUR ---
SEIZURE Patient had a seizure this morning from 1924-0805, she was rigid, able to talk, oxygen 88%, tremors. Ativan given and able to breathe comfortably by 0545. Will continue to monitor.
[2019-08-22 06:00] VITALS: BP 114/62
--- NOTE | 2019-08-22 06:42 | NUR ---
Problems reprioritized. Patient report given, questions answered & plan of care reviewed with Hilary RN.
--- NOTE | 2019-08-22 06:57 | NUR ---
Patient in room PCU 3022. I have received report from KERRI Schuler and had the opportunity to ask questions and assume patient care. Pt resting. BP rechecked d/t high systolic, BP WNL upon recheck. Will continue to monitor.
[2019-08-22] MEDS: furosemide 40mg/4ml inj IV SCH (08:50)
[2019-08-22] MEDS: metoprolol tartrate 50mg tablet PO SCH ×2 (08:51→20:00)
[2019-08-22] MEDS: lactobacillus rhamnosus 10,000 MMU CELLS/CAPSULE PO SCH ×2 (08:51→20:11)
[2019-08-22] MEDS: azithromycin 250mg tablet PO SCH (08:51)
[2019-08-22] MEDS: CefTRIAXone/D5W-Rocephin 1gm 50 ML IV SCH (08:52)
[2019-08-22] MEDS: levetiracetam 250mg tablet PO SCH ×2 (08:52→20:11)
[2019-08-22] MEDS: topiramate 100mg tablet PO SCH ×2 (08:52→20:11)
[2019-08-22] MEDS: multivitamins, therapeutics tablet PO SCH (08:52)
[2019-08-22] MEDS: levoTHYROXINE 25mcg tablet PO SCH (08:52)
[2019-08-22] MEDS: enoxaparin 40mg/0.4ml syringe SUBCUT SCH (08:52)
[2019-08-22] MEDS: tizanidine 4mg tablet PO SCH ×4 (08:54→20:10)
[2019-08-22] MEDS: ESCITALOPRAM OXALATE 5 MG TABLET PO SCH (08:55)
--- NOTE | 2019-08-22 09:59 | NUR ---
Sent to Dr Paniagua PAGER ID: [phone] MESSAGE: RE: DennisGautaml [phone]. PT can't work with the pt with her HR so high, and she can't be transferred to rehab until she works with PT. Please advise. -Hilary [id number]
[2019-08-22 11:00] VITALS: BP 107/61
[2019-08-22] MEDS: acetaminophen 325mg tablet PO PRN (13:34)
[2019-08-22] MEDS: VANCOmycin 1250MG/NS 250ml Bag 250 ML IV SCH (13:35)
[2019-08-22 15:00] VITALS: BP 98/60
--- NOTE | 2019-08-22 18:00 | NUR ---
Patient in room PCU 3022. I have received report from Hilary MANNING and had the opportunity to ask questions and assume patient care.
[2019-08-22] MEDS: HYDROcodone/acetaminophen 10/325mg tab PO PRN (18:33)
--- NOTE | 2019-08-22 18:46 | NUR ---
Problems reprioritized. Patient report given, questions answered & plan of care reviewed with KERRI Parnell.
[2019-08-22 19:00] VITALS: BP 94/63
[2019-08-22] MEDS: ipratropium/albuterol 3ml nebule IH PRN (19:11)
[2019-08-22] MEDS: SIMVASTATIN 20MG TAB PO SCH (20:10)
[2019-08-22] MEDS: olanzapine 10mg tablet PO SCH (20:11)
[2019-08-22 22:00] VITALS: BP 95/67
[2019-08-23 02:00] VITALS: BP 98/62
[2019-08-23] MEDS: HYDROcodone/acetaminophen 10/325mg tab PO PRN ×3 (03:52→13:40)
--- NOTE | 2019-08-23 04:01 | NUR ---
NO LABS in AM PAGER ID: [phone] MESSAGE: [email or web address] Machelle Collins: No labs ordered for this morning, would you like to order something?
--- NOTE | 2019-08-23 05:26 | NUR ---
END NOC NOTE Patient slept very well all night. Patient is excited to be possibly discharging today. Norco10 was given twice on my shift. Will continue to monitor.
--- NOTE | 2019-08-23 06:15 | NUR ---
Patient in room PCU 3022. I have received report from KERRI Schuler and had the opportunity to ask questions and assume patient care.
--- NOTE | 2019-08-23 06:33 | NUR ---
Problems reprioritized. Patient report given, questions answered & plan of care reviewed with Tori MANNING.
[2019-08-23 07:09] VITALS: BP 129/75
[2019-08-23] MEDS: multivitamins, therapeutics tablet PO SCH (07:32)
[2019-08-23] MEDS: levoTHYROXINE 25mcg tablet PO SCH (07:32)
[2019-08-23] MEDS: levetiracetam 250mg tablet PO SCH (07:32)
[2019-08-23] MEDS: lactobacillus rhamnosus 10,000 MMU CELLS/CAPSULE PO SCH (07:32)
[2019-08-23] MEDS: furosemide 40mg/4ml inj IV SCH (07:32)
[2019-08-23] MEDS: topiramate 100mg tablet PO SCH (07:32)
[2019-08-23] MEDS: tizanidine 4mg tablet PO SCH ×2 (07:32→12:36)
[2019-08-23] MEDS: azithromycin 250mg tablet PO SCH (07:33)
[2019-08-23] MEDS: ESCITALOPRAM OXALATE 5 MG TABLET PO SCH (07:33)
[2019-08-23] MEDS: CefTRIAXone/D5W-Rocephin 1gm 50 ML IV SCH (07:33)
[2019-08-23] MEDS: metoprolol tartrate 50mg tablet PO SCH (07:34)
[2019-08-23] MEDS: enoxaparin 40mg/0.4ml syringe SUBCUT SCH (07:34)
[2019-08-23 11:00] VITALS: BP 117/95
[2019-08-23] MEDS: ondansetron/PF 4mg/2ml inj IV PRN (11:06)
--- NOTE | 2019-08-23 11:15 | NUR ---
Patient reported "not feeling well" VS BP 106/58, Pulse 68, SP02 100%on 1L NC. Blood Glucose 59, 240ml of orange juice given, blood sugar 94 on recheck. Patient reports feeling a lot better. Will continue to monitor.
[2019-08-23] MEDS: VANCOmycin 1250MG/NS 250ml Bag 250 ML IV SCH (12:36)
[2019-08-23 15:00] VITALS: BP 101/65
--- NOTE | 2019-08-23 15:26 | NUR ---
Reassessment: Pt PO remains 0-25%/refusing meals no BM yet past 7 days since prior to admit. Received colace 08/20 w/ no routine bowel care; CLAUDY d/w RN regarding routine bowel care per MD approval. Pt has 12/05 caregiver who is present in addition to RN who help to feed pt but reports no appetite recently per RN. Likely complicated by constipation as well. Thickened magic cup shake TIDWM added for additional protein/kcals needs. Given severe weakness, no PO past 6 days, and mild edema present pt qualifies for severe malnutrition at this time; MD notified. Pt will need malnutrition ed prior to d/c. Recommendations 1) Continue heart healthy diet/pureed/NTL per SP/MD 2) Dobbins thick shake made w/ magic cup TIDWM 3) Routine bowel care 4) Wt per rx Addendum: 08/23/19 at [address] Amended: Links added.
[2019-08-23] MEDS: ipratropium/albuterol 3ml nebule IH PRN (16:06)
--- NOTE | 2019-08-23 16:20 | NUR ---
Patient stable for transfer per MD. Report called to Rachelle MANNING at [facility], all questions answered. Patient transferred to [facility] and transported off unit by EMS.
[2019-08-25] MEDS ORDERED: VANCOMYCIN LEVEL IV ONE (12:30)
== END 2019-08-23 16:19 | DRG 720 ==
LOC: ER 19:35 → CANBEDREQ 23:43 → ED HOLD 08-18 00:16 → EDBEDREQ 08-18 02:23 → PCU 3S 08-18 03:48
PROVIDERS: ADMIT Hospitalist; ATTEND Family Medicine
PROC: 5A09357 Assistance with Respiratory Ventilation, Less than 24 Consecutive Hours, Continuous Positive Airway Pressure (ICD-10-PCS; 2019-08-17)
PROC: BW251ZZ Computerized Tomography (CT Scan) of Chest, Abdomen and Pelvis using Low Osmolar Contrast (ICD-10-PCS; 2019-08-17)
PROC: 5A09357 Assistance with Respiratory Ventilation, Less than 24 Consecutive Hours, Continuous Positive Airway Pressure (ICD-10-PCS; principal; 2019-08-18)
PROC: 5A09357 Assistance with Respiratory Ventilation, Less than 24 Consecutive Hours, Continuous Positive Airway Pressure (ICD-10-PCS; 2019-08-22)
PROC: 5A09357 Assistance with Respiratory Ventilation, Less than 24 Consecutive Hours, Continuous Positive Airway Pressure (ICD-10-PCS; 2019-08-23)
DX: A41.9 Sepsis, unspecified organism (principal); J96.01 Acute respiratory failure with hypoxia; J69.0 Pneumonitis due to inhalation of food and vomit; E43 Unspecified severe protein-calorie malnutrition; E87.0 Hyperosmolality and hypernatremia; R13.10 Dysphagia, unspecified; E66.01 Morbid (severe) obesity due to excess calories; E87.70 Fluid overload, unspecified; N18.3 Chronic kidney disease, stage 3 (moderate); E78.00 Pure hypercholesterolemia, unspecified; F32.9 Major depressive disorder, single episode, unspecified; F41.9 Anxiety disorder, unspecified; K21.9 Gastro-esophageal reflux disease without esophagitis; G89.29 Other chronic pain; G80.9 Cerebral palsy, unspecified; E03.9 Hypothyroidism, unspecified; R65.20 Severe sepsis without septic shock; N13.6 Pyonephrosis; G40.909 Epilepsy, unspecified, not intractable, without status epilepticus; E87.6 Hypokalemia; I12.9 Hypertensive chronic kidney disease with stage 1 through stage 4 chronic kidney disease, or unspecified chronic kidney disease; D64.9 Anemia, unspecified; G25.81 Restless legs syndrome; J44.9 Chronic obstructive pulmonary disease, unspecified; E87.1 Hypo-osmolality and hyponatremia; Z93.1 Gastrostomy status; Z68.36 Body mass index [BMI] 36.0-36.9, adult; Z88.0 Allergy status to penicillin; Z88.8 Allergy status to other drugs, medicaments and biological substances
CPT/HCPCS: 36415; 36600; 70450; 71045; 71260; 74177; 76937; 80048; 80053; 80202; 81001; 82803; 83605; 83735; 84132; 84145; 85018; 85025; 85610; 85730; 87040; 87081; 87088; 92508; 92616; 93005; 94640; 94660; 94760; 97112; 97162; 97530; 99285; G0378; J0131; J0456; J0696; J1650; J1940; J1953; J2060; J2270; J2405; J3370; J3480; J3490; J7030; J7070; Q9967

== ENCOUNTER 2020-03-08 12:48 | Outpatient (CLI) | payer MEDICAID ==
[~2020-03-08 12:48] MED LIST changes: +ESCI20TA45 PO; -ESCI5TAB PO; -FLUC100T9 PO; -FLUT16SP10 NS; +IPRA3AMP31 IH; -IPRA3AMP9 NEB; +LEVO50TA8 PO; -PRED5TAB PO; +SIMV-42 PO; -SIMV20TA5 PO; -SYN0.088T PO; -TIZA2TAB5 PO; +TIZA2TAB7 PO; -TIZA4CAP PO; -acetaminophen 1,000mg/100ml IV 100 ML IV ONE
== END 2020-03-08 23:59 | disposition home or self-care (01) ==
LOC: VAS 12:48
PROVIDERS: ATTEND Pediatrics Sports Medicine
DX: M25.571 Pain in right ankle and joints of right foot (principal); M25.511 Pain in right shoulder; M25.512 Pain in left shoulder; M79.89 Other specified soft tissue disorders; M75.42 Impingement syndrome of left shoulder; M75.41 Impingement syndrome of right shoulder; M47.812 Spondylosis without myelopathy or radiculopathy, cervical region; G24.3 Spasmodic torticollis
CPT/HCPCS: 93971

== ENCOUNTER 2020-03-17 13:33 | Inpatient (IN) | payer MEDICAID ==
[~2020-03-17] VITALS: Ht 149.9 cm; Wt 72.0 kg
[2020-03-17] MEDS ORDERED: normal saline 1000ML IV soln IVB ONE (14:00)
[2020-03-17] MEDS ORDERED: ondansetron/PF 4mg/2ml inj IV ONE (14:30)
--- NOTE | 2020-03-17 14:45 | NUR ---
obtained a verbal order from Dr. Nunes for xanaflex 4mg via gtube-per patient's request. Addendum: 03/17/20 at 1554 by LEVI MED VIA PO.
[2020-03-17] MEDS ORDERED: tizanidine 4mg tablet PO STA (14:46)
--- NOTE | 2020-03-17 15:06 | NUR ---
zofran ineffctive,Dr. fowler made aware,ordered to admin another 4mg of zofran and if still ineffective to notify him.Order noted and carried out.
[2020-03-17] MEDS ORDERED: ondansetron/PF 4mg/2ml inj IV STA (15:07)
[2020-03-17 15:20] LABS: BASOPHILS % (AUTO) 0.2 % (0-1); EOSINOPHILS % (AUTO) 0.1 % (0-6); HEMATOCRIT 39.9 % (35.0-45.0); HEMOGLOBIN 12.9 g/dl (12.0-16.0); LYMPHOCYTES # (AUTO) 1.5 X10'3 (1.1-4.8); LYMPHOCYTES % (AUTO) 8.5 % (21-51); MEAN CORPUSCULAR HEMOGLOBIN 29.2 PG (27.0-31.0); MEAN CORPUSCULAR HGB CONC 32.4 g/dL (33.0-36.5); MEAN PLATELET VOLUME 7.6 FL (7.4-10.4); MONOCYTES # (AUTO) 0.7 X10'3 (0-0.9); MONOCYTES % (AUTO) 3.8 % (2-12); NEUTROPHILS # (AUTO) 15.5 X10'3 (1.8-7.7); NEUTROPHILS % (AUTO) 87.4 % (42-75); PLATELET COUNT 345 X10'3 (140-440); RED BLOOD COUNT 4.43 X10'6 (4.20-5.60); RED CELL DISTRIBUTION WIDTH 15.1 % (11.5-14.5); WHITE BLOOD COUNT 17.8 X10'3 (4.5-11.0)
[2020-03-17 15:33] LABS: ALANINE AMINOTRANSFERASE 47 U/L (12-78); ALBUMIN 3.1 G/DL (3.4-5.0); ALBUMIN/GLOBULIN RATIO 0.8 (1.1-1.5); ALKALINE PHOSPHATASE 109 IU/L (46-116); ANION GAP 8 (8-16); ASPARTATE AMINO TRANSFERASE 37 U/L (10-37); BILIRUBIN,TOTAL 0.4 MG/DL (0.1-1.0); BLOOD UREA NITROGEN 16 MG/DL (7-18); BUN/CREATININE RATIO 14.8 (6.6-38.0); CALCIUM 8.7 MG/DL (8.5-10.1); CHLORIDE 108 MMOL/L (99-107); CREATININE 1.08 MG/DL (0.40-0.90); GLUCOSE 124 MG/DL (70-104); POTASSIUM 4.1 MMOL/L (3.5-5.1); SODIUM 139 MMOL/L (135-145); TOTAL CARBON DIOXIDE 22.6 MMOL/L (24-32); TOTAL PROTEIN 6.8 G/DL (6.4-8.2); eGFR 54 ML/MIN
[2020-03-17] MEDS: metoclopramide 5 mg/ml inj IV ONE ×2 (15:33→15:48)
[2020-03-17 15:47] LABS: CLARITY,URINE CLEAR (Clear); COLOR,URINE YELLOW (Yellow); GLUCOSE, URINE NEGATIVE (Neg); KETONES,URINE NEGATIVE (Neg); LEUKOCYTE ESTERASE ,URINE NEGATIVE (Neg); NITRITES, URINE NEGATIVE (Neg); OCCULT BLOOD,URINE NEGATIVE (Neg); PH,URINE 5.5 (4.8-8.0); PROTEIN,URINE NEGATIVE (Neg); UROBILINOGEN,URINE 0.2 E.U/dL (0.2-1.0)
[2020-03-17 15:49] LABS: UA COLLECTION TYPE STRAIGHT CATH
[2020-03-17] MEDS ORDERED: iohexol 300mg/ml 100ml inj. ONE (15:49)
--- NOTE | 2020-03-17 15:53 | NUR ---
PATIENT TO CT.
[2020-03-17] MEDS ORDERED: CefTRIAXone 2gm/D5W 50ml 50 ML IV ONE (16:05)
[2020-03-17] MEDS ORDERED: normal saline 1000ML IV soln IV ONE (16:05)
--- NOTE | 2020-03-17 16:10 | NUR ---
patient back in the room from ct.
[2020-03-17] MEDS ORDERED: levoFLOXACIN-Levaquin 500mg/D5 100 ML IV ONE (17:50)
[2020-03-17] MEDS ORDERED: FLUC150T66 PO (18:23)
[2020-03-17] MEDS ORDERED: TIZA2TAB7 PO (18:23)
[2020-03-17] MEDS ORDERED: VERAMYST (18:23)
[2020-03-17] MEDS ORDERED: METO5TAB85 PO (18:23)
[2020-03-17] MEDS ORDERED: VENTOLIN INH (18:23)
[2020-03-17] MEDS ORDERED: ROBDML PO (18:23)
[2020-03-17] MEDS ORDERED: ACET-1025 PO (18:23)
[2020-03-17] MEDS ORDERED: CALC500T11 PO (18:23)
[2020-03-17] MEDS ORDERED: ALBU2.5V13 NEB (18:23)
[2020-03-17] MEDS ORDERED: MELA1TAB9 PO (18:23)
[2020-03-17] MEDS ORDERED: acetaminophen 325mg tablet PO PRN ×2 (18:30)
[2020-03-17] MEDS ORDERED: magnesium Cl slow-release 64mg tablet PO PRN (18:30)
[2020-03-17] MEDS ORDERED: magnesium 4gm in 100ml NS 100 ML IV PRN (18:30)
[2020-03-17] MEDS ORDERED: potassium CL 10mEq/100ml bag 100 ML IV PRN ×2 (18:30)
[2020-03-17] MEDS ORDERED: ondansetron/PF 4mg/2ml inj IV PRN (18:30)
[2020-03-17] MEDS ORDERED: potassium Cl 20 mEq SR tablet PO PRN ×2 (18:30)
[2020-03-17] MEDS ORDERED: magnesium 2GM in 50ml NS 50 ML IV PRN (18:30)
[2020-03-17] MEDS ORDERED: acetaminophen 650mg rectal suppository RC PRN (18:30)
[2020-03-17] MEDS ORDERED: HYDROcodone/acetaminophen 5mg/325mg tablet PO PRN (18:30)
[2020-03-17] MEDS ORDERED: CALC500T55 PO (19:02)
[2020-03-17] MEDS ORDERED: ALBU18HF2 INH (19:02)
[2020-03-17] MEDS ORDERED: PRED5TAB PO (19:12)
[2020-03-17] MEDS ORDERED: albuterol 2.5 MG/3 ML nebule NEB PRN (19:40)
[2020-03-17] MEDS ORDERED: ipratropium/albuterol 3ml nebule IH PRN (19:40)
[2020-03-17] MEDS ORDERED: ondansetron 4mg rapidly disintigrating tab PO PRN (19:40)
[2020-03-17] MEDS: K and/or MAG REPLACEMENT MC SCH (20:00)
[2020-03-17] MEDS ORDERED: ipratropium/albuterol 3ml nebule NEB PRN (20:03)
[2020-03-17] MEDS: Simvastatin 20 MG TAB PO SCH (21:00)
--- NOTE | 2020-03-17 21:00 | NUR ---
Patient arrived to unit at 2044 via gurney. In no apparent distress. I had gotten report from KERRI Silva
[2020-03-17] MEDS: morphine 2 MG/ML inj. syringe IV PRN (21:46)
[2020-03-17] MEDS: olanzapine 10mg tablet PO SCH (21:47)
[2020-03-17] MEDS: topiramate 100mg tablet PO SCH (21:48)
[2020-03-17] MEDS: metoprolol tartrate 50mg tablet PO SCH (21:48)
[2020-03-17] MEDS: cyclobenzaprine 10mg tablet PO SCH (21:49)
[2020-03-17] MEDS: heparin, porcine 5000 units/ml vial SQ SCH (21:50)
[2020-03-17] MEDS: normal saline 1000ml 1,000 ML IV SCH (22:03)
[2020-03-18] VITALS: BP 132/75
[2020-03-18] MEDS: temazepam 15mg capsule PO PRN ×2 (00:23→22:56)
[2020-03-18] MEDS: normal saline 1000ml 1,000 ML IV SCH ×3 (04:28→22:58)
[2020-03-18] MEDS: morphine 2 MG/ML inj. syringe IV PRN ×3 (05:10→19:56)
[2020-03-18 05:30] LABS: BASOPHILS % (AUTO) 0.1 % (0-1); EOSINOPHILS # (AUTO) 0.4 X10'3 (0-0.9); EOSINOPHILS % (AUTO) 2.5 % (0-6); HEMATOCRIT 37.1 % (35.0-45.0); HEMOGLOBIN 11.9 g/dl (12.0-16.0); LYMPHOCYTES # (AUTO) 3.9 X10'3 (1.1-4.8); LYMPHOCYTES % (AUTO) 27.6 % (21-51); MEAN CORPUSCULAR HGB CONC 32.1 g/dL (33.0-36.5); MEAN CORPUSCULAR VOLUME 90.3 FL (78-98); MEAN PLATELET VOLUME 7.7 FL (7.4-10.4); MONOCYTES % (AUTO) 6.8 % (2-12); NEUTROPHILS # (AUTO) 8.9 X10'3 (1.8-7.7); PLATELET COUNT 301 X10'3 (140-440); RED BLOOD COUNT 4.11 X10'6 (4.20-5.60); WHITE BLOOD COUNT 14.2 X10'3 (4.5-11.0)
[2020-03-18 06:02] LABS: ALANINE AMINOTRANSFERASE 43 U/L (12-78); ALBUMIN 2.8 G/DL (3.4-5.0); ALBUMIN/GLOBULIN RATIO 0.8 (1.1-1.5); ALKALINE PHOSPHATASE 93 IU/L (46-116); ANION GAP 10 (8-16); ASPARTATE AMINO TRANSFERASE 32 U/L (10-37); BILIRUBIN,TOTAL 0.3 MG/DL (0.1-1.0); BLOOD UREA NITROGEN 12 MG/DL (7-18); BUN/CREATININE RATIO 10.8 (6.6-38.0); CHLORIDE 110 MMOL/L (99-107); CREATININE 1.11 MG/DL (0.40-0.90); GLUCOSE 91 MG/DL (70-104); POTASSIUM 3.6 MMOL/L (3.5-5.1); SODIUM 142 MMOL/L (135-145); TOTAL CARBON DIOXIDE 22.1 MMOL/L (24-32); TOTAL PROTEIN 6.4 G/DL (6.4-8.2); eGFR 52 ML/MIN
--- NOTE | 2020-03-18 06:08 | NUR ---
Problems reprioritized. Patient report given, questions answered & plan of care reviewed with KERRI Coker.
--- NOTE | 2020-03-18 06:10 | NUR ---
Patient in room [facility] 345. I have received report from KERRI MADRIGAL and had the opportunity to ask questions and assume patient care.
--- NOTE | 2020-03-18 06:44 | NUR ---
Problems reprioritized. Patient report given, questions answered & plan of care reviewed with KERRI Platt. Addendum: 03/18/20 at 0645 by Barry Scott RN I gave report to KERRI Coker
[2020-03-18 07:00] VITALS: BP 139/85
[2020-03-18] MEDS: levoTHYROXINE 25mcg tablet PO SCH (07:57)
[2020-03-18] MEDS: fluconazole 150mg tablet PO SCH (07:59)
[2020-03-18] MEDS: heparin, porcine 5000 units/ml vial SQ SCH ×2 (07:59→19:54)
[2020-03-18] MEDS: K and/or MAG REPLACEMENT MC SCH ×2 (08:00→20:00)
[2020-03-18] MEDS: cyclobenzaprine 10mg tablet PO SCH ×3 (08:00→20:05)
[2020-03-18] MEDS ORDERED: levoFLOXACIN-Levaquin 500mg/D5 100 ML IV SCH (08:00)
[2020-03-18] MEDS ORDERED: CefTRIAXone 2gm/D5W 50ml 50 ML IV SCH (08:00)
[2020-03-18] MEDS: fluticasone nasal spray 16GM bottle NS SCH ×2 (08:00→08:05)
[2020-03-18] MEDS: metoprolol tartrate 50mg tablet PO SCH ×2 (08:01→20:01)
[2020-03-18] MEDS: ESCITALOPRAM OXALATE 5 MG TABLET PO SCH (08:01)
[2020-03-18] MEDS: topiramate 100mg tablet PO SCH ×2 (08:02→20:02)
[2020-03-18 11:00] VITALS: BP 161/98
[2020-03-18] MEDS ORDERED: methylnaltrexone br 12mg/0.6ml inj***SubQ only SQ ONE (15:15)
[2020-03-18 18:00] VITALS: BP 149/94
--- NOTE | 2020-03-18 18:31 | NUR ---
Problems reprioritized. Patient report given, questions answered & plan of care reviewed with KERRI MADRIGAL.
[2020-03-18] MEDS: olanzapine 10mg tablet PO SCH (20:04)
[2020-03-18] MEDS: lactobacillus rhamnosus 10,000 MMU CELLS/CAPSULE PO SCH (20:07)
[2020-03-18] MEDS: Simvastatin 20 MG TAB PO SCH (21:00)
[2020-03-18] MEDS: proMETHazine 25mg tablet PO PRN (22:56)
[2020-03-18 23:58] VITALS: BP 149/98
--- NOTE | 2020-03-19 06:10 | NUR ---
Patient in room [facility] 345. I have received report from KERRI MADRIGAL and had the opportunity to ask questions and assume patient care.
--- NOTE | 2020-03-19 06:11 | NUR ---
Problems reprioritized. Patient report given, questions answered & plan of care reviewed with KERRI Coker.
[2020-03-19 07:00] VITALS: BP 167/97
[2020-03-19] MEDS: K and/or MAG REPLACEMENT MC SCH (08:00)
[2020-03-19] MEDS: fluticasone nasal spray 16GM bottle NS SCH (08:00)
[2020-03-19] MEDS: normal saline 1000ml 1,000 ML IV SCH (08:42)
[2020-03-19] MEDS: topiramate 100mg tablet PO SCH (08:43)
[2020-03-19] MEDS: metoprolol tartrate 50mg tablet PO SCH (08:43)
[2020-03-19] MEDS: lactobacillus rhamnosus 10,000 MMU CELLS/CAPSULE PO SCH (08:43)
[2020-03-19] MEDS: ESCITALOPRAM OXALATE 5 MG TABLET PO SCH (08:43)
[2020-03-19] MEDS: levoTHYROXINE 25mcg tablet PO SCH (08:44)
[2020-03-19] MEDS: fluconazole 150mg tablet PO SCH (08:44)
[2020-03-19] MEDS: cyclobenzaprine 10mg tablet PO SCH ×2 (08:45→13:31)
[2020-03-19] MEDS: heparin, porcine 5000 units/ml vial SQ SCH (08:50)
[2020-03-19] MEDS: proMETHazine 25mg tablet PO PRN (09:05)
[2020-03-19 11:00] VITALS: BP 146/97
[2020-03-19] MEDS: morphine 2 MG/ML inj. syringe IV PRN (11:23)
[2020-03-19 12:49] LABS: BASOPHILS # (AUTO) 0.1 X10'3 (0-0.2); BASOPHILS % (AUTO) 0.6 % (0-1); EOSINOPHILS # (AUTO) 0.4 X10'3 (0-0.9); EOSINOPHILS % (AUTO) 4.3 % (0-6); HEMOGLOBIN 11.9 g/dl (12.0-16.0); LYMPHOCYTES # (AUTO) 1.8 X10'3 (1.1-4.8); LYMPHOCYTES % (AUTO) 18.1 % (21-51); MEAN CORPUSCULAR HEMOGLOBIN 29.4 PG (27.0-31.0); MEAN CORPUSCULAR HGB CONC 32.9 g/dL (33.0-36.5); MEAN CORPUSCULAR VOLUME 89.4 FL (78-98); MEAN PLATELET VOLUME 7.9 FL (7.4-10.4); MONOCYTES # (AUTO) 0.7 X10'3 (0-0.9); MONOCYTES % (AUTO) 6.8 % (2-12); NEUTROPHILS # (AUTO) 6.9 X10'3 (1.8-7.7); NEUTROPHILS % (AUTO) 70.2 % (42-75); PLATELET COUNT 289 X10'3 (140-440); RED BLOOD COUNT 4.03 X10'6 (4.20-5.60); WHITE BLOOD COUNT 9.8 X10'3 (4.5-11.0)
[2020-03-19 13:02] LABS: ALANINE AMINOTRANSFERASE 45 U/L (12-78); ALBUMIN 2.9 G/DL (3.4-5.0); ALBUMIN/GLOBULIN RATIO 0.8 (1.1-1.5); ALKALINE PHOSPHATASE 89 IU/L (46-116); ANION GAP 7 (8-16); ASPARTATE AMINO TRANSFERASE 27 U/L (10-37); BILIRUBIN,TOTAL 0.2 MG/DL (0.1-1.0); BLOOD UREA NITROGEN 5 MG/DL (7-18); BUN/CREATININE RATIO 5.1 (6.6-38.0); CALCIUM 8.5 MG/DL (8.5-10.1); CHLORIDE 111 MMOL/L (99-107); CREATININE 0.99 MG/DL (0.40-0.90); GLUCOSE 107 MG/DL (70-104); MAGNESIUM 1.7 MG/DL (1.5-2.4); POTASSIUM 3.7 MMOL/L (3.5-5.1); SODIUM 145 MMOL/L (135-145); TOTAL CARBON DIOXIDE 27.1 MMOL/L (24-32); TOTAL PROTEIN 6.4 G/DL (6.4-8.2); eGFR 59 ML/MIN
[2020-03-19] MEDS ORDERED: ACET-1008 PO (13:27)
--- NOTE | 2020-03-19 15:40 | NUR ---
PATIENT STABLE AND APPROPRIATE FOR DISCHARGE, IV TAKEN OUT Addendum: 03/19/20 at 1555 by Sheela Rangel RN EDUCATION GIVEN, POWER WHEELCHAIR GIVEN BACK TO PATIENT, ALL BELONGINGS SENT WITH PATIENT, PATIENT WALKED DOWN TO LOBBY TO AN AWAITING CAR WHERE CAR WILL TAKE PATIENT HOME
== END 2020-03-19 15:40 | disposition home or self-care (01) | DRG 247 ==
LOC: ER 13:34 → ED HOLD 18:28 → SUR 3N 20:45
PROVIDERS: ADMIT Internal Medicine; ATTEND Internal Medicine
PROC: 0D9670Z Drainage of Stomach with Drainage Device, Via Natural or Artificial Opening (ICD-10-PCS; principal; 2020-03-17)
PROC: BW211ZZ Computerized Tomography (CT Scan) of Abdomen and Pelvis using Low Osmolar Contrast (ICD-10-PCS; 2020-03-17)
DX: K56.609 Unspecified intestinal obstruction, unspecified as to partial versus complete obstruction (principal); E87.2 Acidosis; N18.3 Chronic kidney disease, stage 3 (moderate); I12.9 Hypertensive chronic kidney disease with stage 1 through stage 4 chronic kidney disease, or unspecified chronic kidney disease; E78.00 Pure hypercholesterolemia, unspecified; E78.5 Hyperlipidemia, unspecified; F41.8 Other specified anxiety disorders; G80.9 Cerebral palsy, unspecified; N28.9 Disorder of kidney and ureter, unspecified; T38.0X5A Adverse effect of glucocorticoids and synthetic analogues, initial encounter; Z20.828 Contact with and (suspected) exposure to other viral communicable diseases; E05.90 Thyrotoxicosis, unspecified without thyrotoxic crisis or storm; G89.29 Other chronic pain; K21.9 Gastro-esophageal reflux disease without esophagitis; Z88.8 Allergy status to other drugs, medicaments and biological substances; Z88.0 Allergy status to penicillin; Y92.89 Other specified places as the place of occurrence of the external cause
CPT/HCPCS: 36415; 71045; 74177; 80053; 81003; 83605; 83735; 84145; 85025; 87040; 87081; 87635; 94760; 96361; 96365; 96367; 96375; 96376; 99285; G0378; J0696; J1644; J1956; J2212; J2270; J2405; J2765; J7030; Q0169; Q9967

== ENCOUNTER 2020-04-07 13:10 | Emergency (ER) | payer MEDICAID ==
[~2020-04-07] VITALS: Ht 149.9 cm; Wt 72.7 kg
[~2020-04-07 13:10] MED LIST changes: +ALBU18HF2 INH; +ALBU2.5V13 NEB; +MELA1TAB9 PO; +METO5TAB85 PO; -NITR0.4T SL; -OLAN5TAB3 PO; +ROBDML PO; +VERAMYST
[2020-04-07] MEDS ORDERED: CEPH-572 PO (15:24)
[2020-04-07 15:27] LABS: ALANINE AMINOTRANSFERASE 26 U/L (12-78); ALBUMIN/GLOBULIN RATIO 0.8 (1.1-1.5); ALKALINE PHOSPHATASE 129 IU/L (46-116); ANION GAP 9 (8-16); ASPARTATE AMINO TRANSFERASE 23 U/L (10-37); BILIRUBIN,TOTAL 0.2 MG/DL (0.1-1.0); BLOOD UREA NITROGEN 10 MG/DL (7-18); BUN/CREATININE RATIO 8.8 (6.6-38.0); CALCIUM 8.9 MG/DL (8.5-10.1); CHLORIDE 112 MMOL/L (99-107); CREATININE 1.13 MG/DL (0.40-0.90); GLUCOSE 164 MG/DL (70-104); POTASSIUM 3.7 MMOL/L (3.5-5.1); SODIUM 145 MMOL/L (135-145); TOTAL CARBON DIOXIDE 24.1 MMOL/L (24-32); TOTAL PROTEIN 6.6 G/DL (6.4-8.2); eGFR 51 ML/MIN
[2020-04-07 16:18] LABS: BASOPHILS # (AUTO) 0.1 X10'3 (0-0.2); BASOPHILS % (AUTO) 0.7 % (0-1); EOSINOPHILS # (AUTO) 0.3 X10'3 (0-0.9); EOSINOPHILS % (AUTO) 3.4 % (0-6); HEMATOCRIT 36.3 % (35.0-45.0); HEMOGLOBIN 11.9 g/dl (12.0-16.0); LYMPHOCYTES # (AUTO) 2.7 X10'3 (1.1-4.8); LYMPHOCYTES % (AUTO) 28.1 % (21-51); MEAN CORPUSCULAR HEMOGLOBIN 29.3 PG (27.0-31.0); MEAN CORPUSCULAR HGB CONC 32.8 g/dL (33.0-36.5); MEAN CORPUSCULAR VOLUME 89.5 FL (78-98); MEAN PLATELET VOLUME 7.4 FL (7.4-10.4); MONOCYTES # (AUTO) 0.8 X10'3 (0-0.9); MONOCYTES % (AUTO) 8.6 % (2-12); NEUTROPHILS # (AUTO) 5.7 X10'3 (1.8-7.7); NEUTROPHILS % (AUTO) 59.2 % (42-75); PLATELET COUNT 310 X10'3 (140-440); RED BLOOD COUNT 4.06 X10'6 (4.20-5.60); RED CELL DISTRIBUTION WIDTH 14.8 % (11.5-14.5); WHITE BLOOD COUNT 9.7 X10'3 (4.5-11.0)
[2020-04-07] MEDS ORDERED: TERB30CR13 TOP (16:45)
[2020-04-07 17:11] VITALS: BP 111/76
== END 2020-04-07 17:13 | disposition home or self-care (01) ==
LOC: ER 13:11
DX: M25.571 Pain in right ankle and joints of right foot (principal); B35.3 Tinea pedis; E78.00 Pure hypercholesterolemia, unspecified; I10 Essential (primary) hypertension; J45.909 Unspecified asthma, uncomplicated; K21.9 Gastro-esophageal reflux disease without esophagitis; G89.29 Other chronic pain; F41.9 Anxiety disorder, unspecified; F32.9 Major depressive disorder, single episode, unspecified; E05.90 Thyrotoxicosis, unspecified without thyrotoxic crisis or storm; Z86.14 Personal history of Methicillin resistant Staphylococcus aureus infection; Z86.69 Personal history of other diseases of the nervous system and sense organs; Z98.890 Other specified postprocedural states; Z88.5 Allergy status to narcotic agent; Z88.0 Allergy status to penicillin; Z88.8 Allergy status to other drugs, medicaments and biological substances; Z79.899 Other long term (current) drug therapy
CPT/HCPCS: 36415; 73610; 80053; 85025; 99284

== ENCOUNTER 2020-04-19 09:20 | Emergency (ER) | payer MEDICAID ==
[~2020-04-19] VITALS: Ht 154.9 cm; Wt 90.0 kg
[~2020-04-19 09:20] MED LIST changes: +TERB30CR13 TOP
[2020-04-19 09:25] VITALS: BP 130/82
[2020-04-19] MEDS ORDERED: DOXY100C76 PO (10:37)
[2020-04-19] MEDS ORDERED: ondansetron 4mg rapidly disintigrating tab PO ONE (10:40)
[2020-04-19] MEDS ORDERED: oxyCODONE/APAP 5-325mg tablet PO ONE (10:40)
[2020-04-19] MEDS ORDERED: LIDOcaine 5% patch TP ONE (10:45)
== END 2020-04-19 11:00 | disposition home or self-care (01) ==
LOC: ER 09:21
DX: G89.29 Other chronic pain (principal); M79.601 Pain in right arm; M79.602 Pain in left arm; L03.115 Cellulitis of right lower limb; E78.00 Pure hypercholesterolemia, unspecified; I10 Essential (primary) hypertension; J45.909 Unspecified asthma, uncomplicated; K21.9 Gastro-esophageal reflux disease without esophagitis; F41.9 Anxiety disorder, unspecified; F32.9 Major depressive disorder, single episode, unspecified; E05.90 Thyrotoxicosis, unspecified without thyrotoxic crisis or storm; Z86.14 Personal history of Methicillin resistant Staphylococcus aureus infection; Z86.69 Personal history of other diseases of the nervous system and sense organs; Z88.5 Allergy status to narcotic agent; Z88.0 Allergy status to penicillin; Z88.8 Allergy status to other drugs, medicaments and biological substances; Z79.899 Other long term (current) drug therapy
CPT/HCPCS: 99284

== ENCOUNTER 2020-04-24 21:50 | Emergency (ER) | payer MEDICAID ==
[~2020-04-24] VITALS: Ht 149.9 cm; Wt 95.9 kg
[~2020-04-24 21:50] MED LIST changes: +DOXY100C76 PO
[2020-04-24 22:40] LABS: BASOPHILS # (AUTO) 0.1 X10'3 (0-0.2); BASOPHILS % (AUTO) 0.6 % (0-1); EOSINOPHILS # (AUTO) 0.2 X10'3 (0-0.9); EOSINOPHILS % (AUTO) 1.8 % (0-6); HEMATOCRIT 32.3 % (35.0-45.0); HEMOGLOBIN 10.6 g/dl (12.0-16.0); LYMPHOCYTES # (AUTO) 2.1 X10'3 (1.1-4.8); MEAN CORPUSCULAR HEMOGLOBIN 29.2 PG (27.0-31.0); MEAN CORPUSCULAR VOLUME 88.6 FL (78-98); MEAN PLATELET VOLUME 7.3 FL (7.4-10.4); MONOCYTES % (AUTO) 7.9 % (2-12); NEUTROPHILS # (AUTO) 8.9 X10'3 (1.8-7.7); NEUTROPHILS % (AUTO) 72.7 % (42-75); PLATELET COUNT 398 X10'3 (140-440); RED BLOOD COUNT 3.64 X10'6 (4.20-5.60); RED CELL DISTRIBUTION WIDTH 14.6 % (11.5-14.5); WHITE BLOOD COUNT 12.2 X10'3 (4.5-11.0)
[2020-04-24 22:55] LABS: ALANINE AMINOTRANSFERASE 16 U/L (12-78); ALBUMIN 2.9 G/DL (3.4-5.0); ALBUMIN/GLOBULIN RATIO 0.6 (1.1-1.5); ALKALINE PHOSPHATASE 110 IU/L (46-116); ANION GAP 11 (8-16); ASPARTATE AMINO TRANSFERASE 17 U/L (10-37); BILIRUBIN,TOTAL 0.3 MG/DL (0.1-1.0); BLOOD UREA NITROGEN 16 MG/DL (7-18); BUN/CREATININE RATIO 12.1 (6.6-38.0); CALCIUM 8.6 MG/DL (8.5-10.1); CHLORIDE 110 MMOL/L (99-107); CREATININE 1.32 MG/DL (0.40-0.90); GLUCOSE 114 MG/DL (70-104); POTASSIUM 3.6 MMOL/L (3.5-5.1); SODIUM 143 MMOL/L (135-145); TOTAL CARBON DIOXIDE 22.5 MMOL/L (24-32); TOTAL PROTEIN 7.4 G/DL (6.4-8.2); eGFR 43 ML/MIN
[2020-04-24 22:59] LABS: TROPONIN I < 0.04 NG/ML (0.0-0.05)
--- NOTE | 2020-04-25 | NUR ---
Caregiver and ride home: Alanis Mcclelland [phone].
[2020-04-25] MEDS ORDERED: naproxen 500mg tablet PO ONE (01:10)
[2020-04-25] MEDS ORDERED: HYDROcodone/acetaminophen 10/325mg tab PO ONE (01:10)
[2020-04-25] MEDS ORDERED: cyclobenzaprine 10mg tablet PO ONE (01:55)
[2020-04-25] MEDS ORDERED: magnesium oxide 400mg tablet PO ONE (01:55)
[2020-04-25] MEDS ORDERED: morphine 4 MG/ML inj SYRINge IV ONE (01:55)
[2020-04-25] MEDS ORDERED: morphine 2 MG/ML inj. syringe IV PRN (01:55)
[2020-04-25 02:03] LABS: MAGNESIUM 1.9 MG/DL (1.5-2.4)
[2020-04-25 03:51] VITALS: BP 136/62
== END 2020-04-25 03:55 | disposition home or self-care (01) ==
LOC: ER 21:51
DX: M25.512 Pain in left shoulder (principal); G89.29 Other chronic pain; M62.838 Other muscle spasm; R25.1 Tremor, unspecified; E78.00 Pure hypercholesterolemia, unspecified; I10 Essential (primary) hypertension; J45.909 Unspecified asthma, uncomplicated; K21.9 Gastro-esophageal reflux disease without esophagitis; M19.90 Unspecified osteoarthritis, unspecified site; F41.9 Anxiety disorder, unspecified; D32.9 Benign neoplasm of meninges, unspecified; F32.9 Major depressive disorder, single episode, unspecified; E05.90 Thyrotoxicosis, unspecified without thyrotoxic crisis or storm; Z86.69 Personal history of other diseases of the nervous system and sense organs; Z98.890 Other specified postprocedural states; Z88.5 Allergy status to narcotic agent; Z88.0 Allergy status to penicillin; Z88.8 Allergy status to other drugs, medicaments and biological substances; Z79.899 Other long term (current) drug therapy
CPT/HCPCS: 36415; 71045; 73020; 80053; 83735; 84484; 85025; 93005; 99285

== ENCOUNTER 2020-07-10 17:36 | Emergency (ER) | payer MEDICAID ==
[~2020-07-10 17:36] MED LIST changes: -DOXY100C76 PO
[2020-07-10] MEDS ORDERED: magnesium oxide 400mg tablet PO ONE (18:50)
[2020-07-10] MEDS ORDERED: morphine 4 MG/ML inj SYRINge IM ONE (18:50)
--- NOTE | 2020-07-10 18:50 | NUR ---
notified dr muro that patient was tachycardic at 146 and that her previousd admissions didnt have that high of heart rate . dr muro stated that the patient is in pain and has been spasmming for days and he excepcts that high of heart rate . pt placed on cardiac moniotr and will continued to be reassessed . charge nurse awrae of pt heart rate and md interaction
[2020-07-10] MEDS ORDERED: LORazepam 1 MG tablet PO ONE (19:55)
[2020-07-10] MEDS ORDERED: LORA-269 PO (20:40)
[2020-07-10 21:29] VITALS: BP 103/57
== END 2020-07-10 21:34 | disposition home or self-care (01) ==
LOC: ER 17:36
DX: M62.838 Other muscle spasm (principal); R00.0 Tachycardia, unspecified; M25.512 Pain in left shoulder; M25.511 Pain in right shoulder; E78.00 Pure hypercholesterolemia, unspecified; I10 Essential (primary) hypertension; J45.909 Unspecified asthma, uncomplicated; K21.9 Gastro-esophageal reflux disease without esophagitis; M19.90 Unspecified osteoarthritis, unspecified site; G89.29 Other chronic pain; F41.9 Anxiety disorder, unspecified; F32.9 Major depressive disorder, single episode, unspecified; Z99.3 Dependence on wheelchair; Z86.69 Personal history of other diseases of the nervous system and sense organs; E05.90 Thyrotoxicosis, unspecified without thyrotoxic crisis or storm; Z86.14 Personal history of Methicillin resistant Staphylococcus aureus infection; Z98.890 Other specified postprocedural states; Z88.5 Allergy status to narcotic agent; Z88.0 Allergy status to penicillin; Z88.1 Allergy status to other antibiotic agents; Z88.8 Allergy status to other drugs, medicaments and biological substances; Z79.899 Other long term (current) drug therapy
CPT/HCPCS: 96372; 99285; J2270